=== PATIENT | female | born 1950 | race Caucasian/White ===

== ENCOUNTER 2019-08-24 11:17 | Day surgery (SDC) | payer MEDICARE ==
[~2019-08-24] VITALS: Ht 157.5 cm; Wt 118.2 kg
[2019-08-24 11:53] LABS: HEMATOCRIT 42.2 % (36.0-48.0); HEMOGLOBIN 14.2 g/dL (12-16); MCH 30.7 pg (26.0-34.0); MCHC 33.6 g/dL (31.0-37.0); MCV 91.1 fL (80.0-100.0); RBC 4.63 10x6/uL (4.00-5.40); RDW 13.4 % (11.5-14.5); WBC 8.9 10x3/uL (4.8-10.8)
[2019-08-24 12:01] LABS: CALC OSMOLALITY 278 mosm/kg (275-300); CALCIUM 9.3 mg/dL (8.5-10.1); CARBON DIOXIDE 27.7 mmol/L (21.0-32.0); CHLORIDE - SERUM 104 mmol/L (98-107); CREATININE - SERUM 0.8 mg/dL (0.6-1.3); GLUCOSE 120 mg/dL (74-106); POTASSIUM - SERUM 3.9 mmol/L (3.5-5.1); SODIUM 140 mmol/L (136-145); UREA NITROGEN 11 mg/dL (7-18); eGFR NON AFRICAN AMERICAN 75 mL/min (90-120)
[2019-08-24] MEDS ORDERED: BREO ELLIPTA 11 EACH INH (13:27)
[2019-08-24] MEDS ORDERED: METFORMIN HCL500 M1 PO (13:27)
[2019-08-24] MEDS ORDERED: LISINOPRIL20 MG PO (13:27)
[2019-08-24] MEDS ORDERED: PRAVASTATIN SOD10 MG PO (13:28)
[2019-08-24] MEDS ORDERED: WELLBUTRIN SR150 MG PO (13:28)
[2019-08-24] MEDS ORDERED: OXYBUTYNIN CHLOR5 MG PO (13:28)
[2019-08-24] MEDS ORDERED: ELOCON45 GM TOPICAL (13:29)
[2019-08-24] MEDS ORDERED: KENALOG 0.1 % 115 GM TOPICAL (13:29)
[2019-08-24 13:39] VITALS: BP 176/78; Ht 157.5 cm; Wt 118.2 kg
--- NOTE | 2019-08-24 15:40 | NUR ---
PT DC INSTRUCTIONS REVIEWED AT THIS TIME, PT VERBALIZES UNDERSTANDING. PT IV REMOVED AT THIS TIME, INTACT, NO REDNESS OR SWELLING NOTED AT SITE.
--- NOTE | 2019-08-24 15:52 | NUR ---
PT LEAVING OPS AT THIS TIME, VIA WC, NAD NOTED.
--- NOTE | 2019-08-25 07:49 | OP ---
PATIENT NAME: TRISTA NEAL MEDICAL RECORD: [id number] :48 LOCATION:[facility] ADMISSION DATE: SURGEON: SHELLIE KING DO DATE OF OPERATION: 08/24/2019 PROCEDURE: Colonoscopy with polypectomy and biopsies as well as partial snare polypectomy. INDICATIONS FOR PROCEDURE: Stool DNA based colorectal cancer screening positive with a family history positive for colon cancer in father as well as a brother and 2 sisters. SCOPE: Olympus video pediatric colonoscope. MEDICATIONS: Propofol 600 mg IV per anesthesia. ESTIMATED BLOOD LOSS: Minimal. COMPLICATIONS: None immediate. FINDINGS: Informed consent was given. The patient was made comfortable with the above medication. After reaching an adequate level of sedation by slow IV push, the patient was placed on her left side. A digital rectal examination was performed and was normal. The endoscope was advanced under direct visualization through the rectum to the cecum, confirmed by the presence of the appendiceal orifice and ileocecal valve. The endoscope was slowly withdrawn and mucosa was carefully examined. Prep quality was good. There were only 2 polyps visualized on today's examination. They were both located in the rectum. The first was a benign appearing polyp which was flat. It measured approximately 1 cm in size. It was removed using endoscopic mucosal resection technique with an injection of isotonic saline for a saline pillow. It was then removed using a snare successfully. A second polyp measured approximately 2 x 2.5 cm in size. It was a flat polyp with mixed features that had some depressed areas and some ulcerated areas which is somewhat concerning for possible malignancy. A lift was attempted on this polyp. Approximately half polyp did lift easily, but the ulcerative side with some depressed areas did not lift easily, which further raises some concern for possible malignancy. A snare polypectomy, biopsy was removed from the side that did lift easily and cold forceps biopsies were taken from the side that did not lift well for further information. We will need to determine if there are any areas of high-grade dysplasia in this polyp to determine further course of action, which could include surgery or further endoscopic removal. The only other finding in the entire colon was a large benign-appearing lipoma in the ascending colon, which was biopsied. The appendiceal orifice was visualized. The endoscope was slowly withdrawn with no other polyps visualized. There were also no diverticula. No obvious hemorrhoids were seen on today's examination either. IMPRESSIONS: Large, flat polyp with mixed features in the rectum, as described above. The polyp was biopsied with a snare and cold forceps. Another, smaller, flat polyp in the rectum that was removed with a snare. Benign lipoma in the ascending colon that was biopsied. PLAN: Await biopsy results to determine further intervention of rectal polyp, which may OPERATIVE REPORT [id number] TRISTA NEAL include surgical intervention or endoscopic removal with / without APC. Further recalls will be dependent on biopsy results and further interventions. TRANSINT:[id number] Voice Confirmation ID: [id number] DOCUMENT ID: [id number] SHELLIE KING DO at 0749 CC: [id number] DICTATION DATE: 08/24/19 1504 [facility] DIRECTOR: 08/24/19 1802 [facility] 08/24/19 [id number] [place] [address]
== END 2019-08-24 15:52 | disposition home or self-care (01) ==
LOC: D.OPS 11:17
PROVIDERS: Anesthesiology; ATTEND Internal Medicine Gastroenterology
DX: Z12.11 Encounter for screening for malignant neoplasm of colon (principal); Z80.0 Family history of malignant neoplasm of digestive organs

== ENCOUNTER 2020-02-16 06:40 | Day surgery (SDC) | payer MEDICARE ==
[~2020-02-16] VITALS: Ht 157.5 cm; Wt 119.5 kg
--- NOTE | ~2020-02-16 | OP ---
PATIENT NAME: TRISTA NEAL MEDICAL RECORD: [id number] :48 LOCATION:[facility] ADMISSION DATE: SURGEON: SHARON DOW MD DATE OF OPERATION: 02/16/2020 PREOPERATIVE DIAGNOSIS: History of rectal cancer. POSTOPERATIVE DIAGNOSES: 1. History of rectal cancer. 2. 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 SURGEON: Sharon Dow MD SHELL MAKER LOCKSTITCH: None. BLOOD LOSS: Minimal. ANESTHESIA: IV sedation. COMPLICATIONS: None. The risks, possible complications, and alternatives to the procedure were explained to the patient. She elects to proceed. The discussion specifically included, but was not limited to, bleeding requiring emergency reoperation, infection, and endoscopic perforation. OPERATIVE COURSE: The patient was conveyed to the GI lab electively on 02/16/2020, IV sedation was induced by the anesthesia staff. The patient was placed in the Nuñez position. A digital rectal examination was performed. A colonoscope was inserted through the anus. It was easily advanced to the cecum. The prep was adequate. I slowly withdrew the endoscope. A combination of normal imaging and narrow band imaging were utilized. The pullback was greater than 15-minute pullback. The malignancy was identified and was very close to the anus. A retroflexed view was obtained. I then thoroughly biopsied the ulcerated mass, which is unlikely some of the residual malignancy. I then utilized the argon plasma rn clinical review for hemostasis. I then un-retroflexed the scope and removed it under direct vision. I will see the patient in my office in 2 to 3 weeks. I think the patient is going to require proctectomy with an coloanal anastomosis and a diverting ileostomy. TRANSINT:[id number] Voice Confirmation ID: [id number] DOCUMENT ID: [id number] SHARON DOW MD CC: JO-ANN ALFARO MD, CHEPE FUENTES VOISE, NATHAN A DO [id number] ABIGAIL MITCHELL DICTATION DATE: 02/16/20 1053 PSYCHOLOGIST EDUCATIONAL: 02/16/202027 [facility] 02/16/20 [id number] [place] [address]
[~2020-02-16 06:40] MED LIST: BREO ELLIPTA 11 EACH INH; ELOCON45 GM TOPICAL; KENALOG 0.1 % 115 GM TOPICAL; LISINOPRIL20 MG PO; METFORMIN HCL500 M1 PO; OXYBUTYNIN CHLOR5 MG PO; PRAVASTATIN SOD10 MG PO; WELLBUTRIN SR150 MG PO
[2020-02-16 07:21] LABS: HEMATOCRIT 41.8 % (36.0-48.0); HEMOGLOBIN 13.6 g/dL (12-16); MCHC 32.5 g/dL (31.0-37.0); MCV 92.3 fL (80.0-100.0); MEAN PLATELET VOLUME 9.6 fL (7.4-10.4); RBC 4.53 10x6/uL (4.00-5.40); RDW 13.2 % (11.5-14.5); WBC 8.1 10x3/uL (4.8-10.8)
[2020-02-16 07:32] LABS: ANION GAP 11.3 mmol/L (8-16); CALCIUM 9.6 mg/dL (8.5-10.1); CARBON DIOXIDE 28.4 mmol/L (21.0-32.0); CREATININE - SERUM 0.9 mg/dL (0.6-1.3); POTASSIUM - SERUM 3.7 mmol/L (3.5-5.1)
[2020-02-16 07:45] VITALS: BP 136/101; Ht 157.5 cm; Wt 119.5 kg
--- NOTE | 2020-02-16 15:30 | NUR ---
[address] DOW. PROCEDURE FINDINGS DISCUSSED WITH PATIENT. PHOTOS REVIEWED. Luz BENÍTEZ R.N.
--- NOTE | 2020-02-16 15:33 | NUR ---
1145 IV DC'ED WITH CATH INTACT. PT DRESSING. Luz BENÍTEZ R.N. 1155 DRESSED AWAKE& ALERT. GIVEN DISCHARGE INFORMATION INCLUDING: MED REC, SHEET LISTING NSAIDS TO AVOID, RTC APPT., & [facility] POST ENDOSCOPIC D/C INSTRUCTIONS. PT VOICED UNDERSTANDING. TO PRIVATE CAR PER WHEELCHAIR BY STAFF. HOME WITH FAMILY. Luz BENÍTEZ R.N.
--- NOTE | 2020-02-16 18:31 | HP ---
PATIENT: TRISTA NEAL MEDICAL RECORD: [id number] ACCOUNT: [id number] LOCATION:[facility] : 48 ADMISSION DATE: 02/16/20 PCP: JO-ANN ALFARO HISTORY AND PHYSICAL EXAMINATION CHIEF COMPLAINT: Rectal cancer. HISTORY OF PRESENT ILLNESS: The patient was found to have a rectal cancer. She underwent chemotherapy. She did not undergo radiation therapy due to a history of uterine cancer in the past, which required radiation. She is here to determine if there is a persistent tumor requiring surgical resection. The risks, possible complications and alternatives to the procedure were explained to the patient. She elects to proceed. SOCIAL HISTORY: Nonsmoker. PAST MEDICAL AND SURGICAL HISTORY: Asthma, bronchitis, hypertension, non-insulin dependent diabetes, hypercholesterolemia, depression. REVIEW OF SYSTEMS: Negative for angina, myocardial infarction, CABG, or coronary stents. ALLERGIES: CODEINE AND PHENERGAN. HOME MEDICATIONS: Please see the nursing list. PHYSICAL EXAMINATION: GENERAL: The patient does not appear acutely ill. She does not appear chronically ill. VITAL SIGNS: Reviewed. EARS: External ears appear normal. EYES: Extraocular movements are intact. NECK: Trachea is midline. CHEST: No intercostal retractions. PULMONARY: Nonlabored. IMPRESSION: History of rectal cancer. PLAN: Colonoscopy. Biopsies. Probable tattooing. TRANSINT:[id number] Voice Confirmation ID: [id number] DOCUMENT ID: [id number] HISTORY AND PHYSICAL [id number] TRISTA NEAL SHARON DOW MD at 1831 CC: JO-ANN ALFARO MD, CHEPE FUENTES VOISE, NATHAN A [id number] ABIGAIL MITCHELL DICTATION DATE: 02/16/20 1005 W[facility] HELPER: 02/16/20 1016 [facility] 02/16/20 [id number] [place] [id number]
== END 2020-02-16 11:55 | disposition home or self-care (01) ==
LOC: D.OPS 06:40
PROVIDERS: Anesthesiology; ATTEND Surgery
DX: Z85.048 Personal history of other malignant neoplasm of rectum, rectosigmoid junction, and anus (principal)

== ENCOUNTER 2020-03-21 08:00 | Inpatient (IN) | payer MEDICARE ==
[~2020-03-21] VITALS: Ht 157.5 cm; Wt 150.7 kg
[~2020-03-21 08:00] MED LIST changes: +PRAVACHOL20 MG PO; -PRAVASTATIN SOD10 MG PO
[2020-03-28] MEDS ORDERED: NASACORT10.8 ML NASAL (13:55)
[2020-03-28] MEDS ORDERED: CLARITIN 10 MG10 MG PO (13:55)
[2020-03-30 09:01] LABS: BASOPHILS 0.6 % (0-2); HEMATOCRIT 41.2 % (36.0-48.0); HEMOGLOBIN 13.9 g/dL (12-16); IMMATURE GRANULOCYTES 0.3 % (0-5); LYMPHOCYTES 11.4 % (15-50); MCH 30.6 pg (26.0-34.0); MCHC 33.7 g/dL (31.0-37.0); MCV 90.7 fL (80.0-100.0); MEAN PLATELET VOLUME 9.8 fL (7.4-10.4); MONOCYTES 8.5 % (2-11); NEUTROPHILS 75.2 % (40-80); PLATELET COUNT 233 10x3/uL (130-400); RBC 4.54 10x6/uL (4.00-5.40); RDW 13.5 % (11.5-14.5)
[2020-03-30 09:13] LABS: ANION GAP 10.8 mmol/L (8-16); CALCIUM 9.6 mg/dL (8.5-10.1); CREATININE - SERUM 1.1 mg/dL (0.6-1.3); POTASSIUM - SERUM 3.8 mmol/L (3.5-5.1)
[2020-03-30 09:22] LABS: APTT 33.9 SECONDS (22.8-39.4); INR 1.08 (0.85-1.17); PROTIME 13.9 SECONDS (11.6-15.0)
[2020-03-30 10:15] VITALS: BP 148/79; BMI 48.9
--- NOTE | 2020-03-30 20:34 | NUR ---
1915 - PT STABLE AND MEETS PACU DISCHARGE CRITERIA, NO ICU BED AVAILABLE. SWITCHING TO PHASE II PROTOCOL.
[2020-03-30 22:25] VITALS: BP 106/69; BMI 51.3
[2020-03-30 23:00] VITALS: BP 102/58
[2020-03-31] VITALS (23 sets, daily range): BP systolic 84–120; BP diastolic 48–84; Ht 157.5 cm; Wt 150.7 kg
[2020-03-31 05:25] LABS: ANION GAP 14.3 mmol/L (8-16); CALCIUM 7.8 mg/dL (8.5-10.1); CARBON DIOXIDE 22.7 mmol/L (21.0-32.0); CREATININE - SERUM 0.9 mg/dL (0.6-1.3); MAGNESIUM - SERUM 1.5 mg/dL (1.8-2.4); PHOSPHOROUS 3.7 mg/dL (2.5-4.9)
[2020-03-31 05:28] LABS: HEMATOCRIT 33.6 % (36.0-48.0); MCH 30.1 pg (26.0-34.0); MCHC 32.7 g/dL (31.0-37.0); MCV 92.1 fL (80.0-100.0); PLATELET COUNT 218 10x3/uL (130-400); RBC 3.65 10x6/uL (4.00-5.40); RDW 13.7 % (11.5-14.5); WBC 22.3 10x3/uL (4.8-10.8)
[2020-03-31 07:53] LABS: LYMPHOCYTES 4 % (15-50); MONOCYTES 1 % (2-11); NEUTROPHILS 95 % (40-80); PLATELET ESTIMATE NORMAL
--- NOTE | 2020-03-31 09:54 | NUR ---
DR. DOW CALLED INSTRUCT BP 80S. WBC WENT FROM 9 TO 22. NEW ORDERS OBTAINED.
--- NOTE | 2020-03-31 09:55 | NUR ---
NS ONE LITER BOLUS INFUSING STARTED MERREM 2 GMS.
--- NOTE | 2020-03-31 10:00 | NUR ---
DAUGHTER UPDATED ON PT CONDITION.
--- NOTE | 2020-03-31 16:00 | NUR ---
TRY TO CALL SATISH TO UPDATE BUT HIS PHONE NOT EXCEPTING PHONE CALLS.
--- NOTE | 2020-03-31 18:16 | NUR ---
PT REFUSED BATH STATES I TOOK A HIBICLENS BATH YESTERDAY. WILL GET ONE TOMORROW.
[2020-04-01] VITALS (13 sets, daily range): BP systolic 99–142; BP diastolic 46–76
[2020-04-01 04:11] LABS: BASOPHILS 0.2 % (0-2); EOSINOPHILS 0.6 % (0-7); HEMATOCRIT 32.5 % (36.0-48.0); HEMOGLOBIN 10.2 g/dL (12-16); IMMATURE GRANULOCYTES 0.4 % (0-5); LYMPHOCYTES 6.8 % (15-50); MCH 30.3 pg (26.0-34.0); MCHC 31.4 g/dL (31.0-37.0); MEAN PLATELET VOLUME 10.1 fL (7.4-10.4); MONOCYTES 6.8 % (2-11); NEUTROPHILS 85.2 % (40-80); PLATELET COUNT 199 10x3/uL (130-400); RBC 3.37 10x6/uL (4.00-5.40); RDW 14.2 % (11.5-14.5)
[2020-04-01 04:16] LABS: MCV 96.4 fL (80.0-100.0); WBC 16.2 10x3/uL (4.8-10.8)
[2020-04-01 04:20] LABS: INR 1.27 (0.85-1.17); PROTIME 15.8 SECONDS (11.6-15.0)
[2020-04-01 04:26] LABS: ALBUMIN 2.3 g/dL (3.4-5.0); ALKALINE PHOSPHATASE 41 U/L (30-120); ALT (SGPT) 30 U/L (10-68); BILIRUBIN - TOTAL 0.77 mg/dL (0.2-1.3); CALC OSMOLALITY 288 mosm/kg (275-300); CARBON DIOXIDE 22.2 mmol/L (21.0-32.0); CHLORIDE - SERUM 113 mmol/L (98-107); CREATININE - SERUM 0.8 mg/dL (0.6-1.3); GLUCOSE 114 mg/dL (74-106); MAGNESIUM - SERUM 1.7 mg/dL (1.8-2.4); POTASSIUM - SERUM 4.1 mmol/L (3.5-5.1); PROTEIN - SERUM 5.3 g/dL (6.4-8.2); SODIUM 144 mmol/L (136-145); UREA NITROGEN 14 mg/dL (7-18); eGFR NON AFRICAN AMERICAN 75 mL/min (90-120)
--- NOTE | 2020-04-01 07:00 | NUR ---
BEDSIDE REPORT RECEIVED. SHIFT ASSESSMENT COMPLETE PER FLOWSHEET, SEE FLOWSHEET FOR INFORMATION. PT DEMANDDS ICE CHIPS. WHEN ASKED IF SHE IS IN PAIN SHE STATES "MY PAIN IS 20/10" EXPLAINED TO PT THE RULES AND REGULATIONS TO USING THE EPIDURAL. PT THEN STATED "I KNOW HOW TO USE IT." WILL CONT TO MONITOR.
--- NOTE | 2020-04-01 10:49 | NUR ---
REPORT CALLED TO [facility] SURG. WILL CONT TO MONITOR.
--- NOTE | 2020-04-01 11:30 | NUR ---
PATIENT RECEIVED TO ROOM 2227 WITH EPIDURAL INTACT WITH IVF AND EPIDURAL INFUSING AT PRESCRIBED RATE. COLOSTOMY INTACT TO LLQ ANTERIOR. O2 SAT 96% RA AT THIS TIME. ENCOURAGED TO USE CALL LIGHT FOR ASSIST
--- NOTE | 2020-04-01 21:23 | NUR ---
Kaci Pantoja CRNA notified of patients pain uncontrolled, increased to 6.5ml/hr, reattached tubing, will continue to monitor patient, family x1 at BS, call light within reach
--- NOTE | 2020-04-01 22:14 | NUR ---
Upon changing patients bed found active bleeding from rectum, Dr. Sawant notified, he stated that this would be normal for few months, applied ABD pad to rectum, colostomy intact with bright red dischaged, Dr. Sawant notified of the situation, will continue to monitor patient, patient rates pain 2 on pain scale 1/10, call light within reach, family x1 at BS
[2020-04-02 06:13] LABS: CALC OSMOLALITY 293 mosm/kg (275-300); CALCIUM 8.6 mg/dL (8.5-10.1); CARBON DIOXIDE 25.7 mmol/L (21.0-32.0); CHLORIDE - SERUM 112 mmol/L (98-107); CREATININE - SERUM 0.7 mg/dL (0.6-1.3); GLUCOSE 149 mg/dL (74-106); POTASSIUM - SERUM 4.2 mmol/L (3.5-5.1); SODIUM 145 mmol/L (136-145); UREA NITROGEN 17 mg/dL (7-18); eGFR NON AFRICAN AMERICAN 88 mL/min (90-120)
--- NOTE | 2020-04-02 09:22 | NUR ---
VERIFIED WITH SANDEEP FROM ANESTHESIA OK TO GIVE DILAUDID WITH EPIDURAL AT THIS TIME. STATED OK AND THAT SHE WOULD BE OVER TO REMOVED EPIDURAL WHEN FINISHED WITH THE CASE SHE IS IN.
[2020-04-02 10:10] VITALS: BP 167/70
[2020-04-02 13:25] VITALS: BP 161/76
[2020-04-02 16:43] LABS: HEMATOCRIT 31.9 % (36.0-48.0); HEMOGLOBIN 9.9 g/dL (12-16); MCH 30.3 pg (26.0-34.0); MCV 97.6 fL (80.0-100.0); MEAN PLATELET VOLUME 10.4 fL (7.4-10.4); PLATELET COUNT 241 10x3/uL (130-400); RBC 3.27 10x6/uL (4.00-5.40); RDW 13.9 % (11.5-14.5)
[2020-04-02 17:02] VITALS: BP 171/83
[2020-04-02 17:25] LABS: LYMPHOCYTES 7 % (15-50); MONOCYTES 3 % (2-11); NEUTROPHILS 89 % (40-80); PLATELET ESTIMATE NORMAL
[2020-04-02 21:00] VITALS: BP 190/77
--- NOTE | 2020-04-02 23:00 | NUR ---
INSTRUCTED PATIENT I HAD A ORDER TO PLACE NGT DUE TO VOMITING, PATIENT STATED HAS NOT HAD N/V SINCE SHIFT CHANGE, WOULD LIKE TO WAIT AND SEE IF N/W HAS SUBSIDED, WILL CONTINUE TO MONITOR PATIENT, FAMILY X1 AT BEDSIDE, CALL LIGHT WITHIN REACH, BARREL LATHE OPERATOR INSIDE INFUSING WITHOUT COMPLICATIONS
--- NOTE | 2020-04-03 04:25 | NUR ---
16 FR NGT INSERTED TO LEFT NARE BY ROB ABURTO. PATIENT TOLERAED WELL, CONNECTED TO LIWS, 750CC OUT, WILL CONTINUE TO MONITOR PATIENT, DILAUDID JOB SERVICE SPECIALIST IN USE, FAMILY X1 AT BS, CALL LIGHT WITHIN REACH
--- NOTE | 2020-04-03 07:00 | NUR ---
RECEIVED REPORT, ASSUMED CARE, CALL LIGHT IN REACH, AT BEDSIDE, BED LOWEST POSIIMARCO ANTONIO, NG TO Moi KELLER PATENT, IV TO RFA PATENT NS@100 DILAUDID ADVANCED MANUFACTURING ENGINEER, OSTOMY CDI, SCD'S ON, WILL CONTINUE POC
[2020-04-03 07:15] VITALS: BP 165/78
[2020-04-03 07:21] LABS: CALC OSMOLALITY 291 mosm/kg (275-300); CALCIUM 8.9 mg/dL (8.5-10.1); CARBON DIOXIDE 25.9 mmol/L (21.0-32.0); CHLORIDE - SERUM 111 mmol/L (98-107); CREATININE - SERUM 0.7 mg/dL (0.6-1.3); GLUCOSE 128 mg/dL (74-106); POTASSIUM - SERUM 4.1 mmol/L (3.5-5.1); SODIUM 144 mmol/L (136-145); eGFR NON AFRICAN AMERICAN 88 mL/min (90-120)
[2020-04-03 07:25] LABS: UREA NITROGEN 22 mg/dL (7-18)
[2020-04-03 08:03] LABS: BASOPHILS 0.2 % (0-2); EOSINOPHILS 4.7 % (0-7); HEMATOCRIT 31.6 % (36.0-48.0); HEMOGLOBIN 9.8 g/dL (12-16); LYMPHOCYTES 5.6 % (15-50); MCH 29.8 pg (26.0-34.0); MEAN PLATELET VOLUME 9.9 fL (7.4-10.4); MONOCYTES 6.9 % (2-11); NEUTROPHILS 81.6 % (40-80); PLATELET COUNT 298 10x3/uL (130-400); RBC 3.29 10x6/uL (4.00-5.40); RDW 13.9 % (11.5-14.5); WBC 18.9 10x3/uL (4.8-10.8)
[2020-04-03 12:04] VITALS: BP 175/78
--- NOTE | 2020-04-03 16:00 | NUR ---
PT WAS YELLING AND SCREAMING FOR US TO LEAVE HER ALONE AND REFUSED TO HAVE THE KUB, DR MCCOLLUM AWARE, PT GIVEN BOLUS DOSE OF DILAUDID 0.4MG TO HELP ALEVIATE HER PAIN, PT STILL REFUSED AND TOLD NURSE TO GET OUT OF HER ROOM AND LEAVE HER ALONE, NURSE INSTRUCTED PT TO USE PILLOW TO BRACE ABDOMEN WHEN MOVING OR COUGHING, ALSO NOTIFIED TO KEEP REMINDING HER TO BRACE ABDOMEN WITH PILLOW AKNOWLEDGED UNDERSTANDING. NURSE LEFT ROOM AND INSTRUCTED PT AND TO LET NURSE KNOW IF THEY NEED ANYTHING.
[2020-04-03 16:32] VITALS: BP 134/66
[2020-04-03 20:00] VITALS: BP 191/141
--- NOTE | 2020-04-03 20:00 | NUR ---
PATIENT RESTING QUIETLY, REPOSITIONED PATIENT WITH PATIENT HELP, PATIENT INSISTED DOIN IT BY HERSELF, PATIENT TOLERATED WELL, PATIENT LYING ON LEFT SIDE, COLOSTOMY INTACT, NGT TO LEFT NARE AT LIWS INTACT, GLOVER DRAINING VIA GRAVITY, SCD'S ON, FAMILY X1 AT BS, WILL CONTINUE TO MONITOR PATIENT, CALL LIGHT WITHIN REACH
[2020-04-04] VITALS: BP 151/76
[2020-04-04 04:00] VITALS: BP 167/74
[2020-04-04 06:24] LABS: BASOPHILS 0.3 % (0-2); EOSINOPHILS 3.5 % (0-7); HEMATOCRIT 31.4 % (36.0-48.0); HEMOGLOBIN 9.6 g/dL (12-16); IMMATURE GRANULOCYTES 1.2 % (0-5); LYMPHOCYTES 6.7 % (15-50); MCH 29.3 pg (26.0-34.0); MCHC 30.6 g/dL (31.0-37.0); MCV 95.7 fL (80.0-100.0); MEAN PLATELET VOLUME 9.7 fL (7.4-10.4); MONOCYTES 7.8 % (2-11); NEUTROPHILS 80.5 % (40-80); PLATELET COUNT 271 10x3/uL (130-400); RBC 3.28 10x6/uL (4.00-5.40); RDW 13.7 % (11.5-14.5)
[2020-04-04 06:28] LABS: WBC 13.6 10x3/uL (4.8-10.8)
[2020-04-04 06:46] LABS: CALCIUM 8.2 mg/dL (8.5-10.1); CHLORIDE - SERUM 112 mmol/L (98-107); GLUCOSE 116 mg/dL (74-106); MAGNESIUM - SERUM 1.6 mg/dL (1.8-2.4); POTASSIUM - SERUM 3.6 mmol/L (3.5-5.1); SODIUM 152 mmol/L (136-145)
[2020-04-04 06:50] LABS: CALC OSMOLALITY 303 mosm/kg (275-300); CARBON DIOXIDE 32.5 mmol/L (21.0-32.0); CREATININE - SERUM 0.5 mg/dL (0.6-1.3); UREA NITROGEN 14 mg/dL (7-18); eGFR NON AFRICAN AMERICAN > 90 mL/min (90-120)
[2020-04-04 08:37] VITALS: BP 167/72
[2020-04-04 12:00] VITALS: BP 196/91
--- NOTE | 2020-04-04 12:49 | NUR ---
DOOR OPEN. PATIENT WITHOUT SIGNS OF DISTRESS
--- NOTE | 2020-04-04 13:11 | NUR ---
PT RETURNEDF FROM MEDICAL IMAGING IN EXCRUCIATING PAIN AND NAUSEOUS, ADMINISTERED PRN NAUSEA MEDICATION WELL SUPERVISOR AREA BOLUS. DAUGHTER AT BEDSIDE, NGT IN PLACE TO LIS NO NEEDS VOICED ATTHIS TIME. COTNINUE WITH PLAN OF CARE
--- NOTE | 2020-04-04 13:13 | NUR ---
PER KUB NGT NEEDS TO BE ADVANCED BY AT LEAST 6CM. WILL ADVANCE ORDERD
--- NOTE | 2020-04-04 15:05 | MORECARE ---
CASE MANAGEMENT DISCHARGE SUMMARY PATIENT: TRISTA NEAL UNIT: [id number] ADM DATE: 03/30/20 AGE: 69 : 49 SEX: F ROOM/BED: D.2227 AUTHOR: EDILBERTO HDEZ PHYSICIAN: REFERRING PHYSICIAN: SHARON DOW MD DATE OF SERVICE: 04/04/20 Discharge Plan Patient Name: TRISTA NEAL Facility: [facility]:[place] : 1950 Planned Disposition: Home or Self Care Anticipated Discharge Date: Discharge Date: Expected LOS: Initial Reviewer: [email or web address] Initial Review Date: 04/04/2020 Generated: 04/04/20 4:04 pm Comments DCP- Discharge Planning Updated by [email or web address]: Tara Ruiz on 04/04/20 2:[address] Patient Name: TRISTA NEAL Admission Status: Elective Accout number: [id number] Admission Date: 03-30-2020 : 1950 Admission Diagnosis:MALIGNANT NEOPLASM OF RECTUM Attending: SHARON DOW Current LOS: 5 Anticipated DC Date: Planned Disposition: Home or Self Care Primary Insurance: MEDICARE A & B Discharge Planning Comments: CM met with patient AND DAUGHTER DONTE at bedside after explaining CM role and obtaining verbal consent. CM discussed availability / needs of home health, REHAB and medical equipment. PATIENT WITH NG TUBE AT THIS TIME. STATES PLAN TO DC TO HOME WHEN BETTER. REASSES FOR POSSIBLE NEED FOR HH OR REHAB. Bottom Brusher: Tara Ruiz DCPIA - Discharge Planning Initial Assessment Updated by [email or web address]: Tara Ruiz on 04/04/20 2:59 pm * Is the patient Alert and Oriented? Yes * PCP [facility] * [facility] * Preadmission Environment Home with Family * ADLs Independent * Other Equipment NEBULIZER * Can the patient safely return to the preadmission environment? Yes * Has this patient been hospitalized within the prior 30 days at any hospital? No Patient Name: TRISTA NEAL Page [phone] at 1505 All edits/amendments must be made on the electronic document DICTATION DATE: 04/04/20 1504 STATUE CARVER: JENIFFER 04/04/20 1504 RPT#: [id number] DC DATE: STATUS: ADM IN [facility] [address] [place] [address] END OF REPORT
[2020-04-04 16:00] VITALS: BP 182/76
--- NOTE | 2020-04-04 16:29 | NUR ---
PT MORE AWAKE THIS AFTERNOON AND STATES PAIN IS AT A 2. PT NGT HAS ABOUT 500 OUT PUT. DAUGHTER AT BEDSIDE NO NEEDS VOICED. CONTINUE WITH PLAN OF CARE
[2020-04-04 20:55] VITALS: BP 168/66
[2020-04-05] VITALS (7 sets, daily range): BP systolic 140–206; BP diastolic 68–107
[2020-04-05 05:11] LABS: CALC OSMOLALITY 291 mosm/kg (275-300); CALCIUM 8.7 mg/dL (8.5-10.1); CARBON DIOXIDE 31.3 mmol/L (21.0-32.0); CHLORIDE - SERUM 108 mmol/L (98-107); GLUCOSE 124 mg/dL (74-106); MAGNESIUM - SERUM 1.6 mg/dL (1.8-2.4); POTASSIUM - SERUM 3.4 mmol/L (3.5-5.1); SODIUM 146 mmol/L (136-145); UREA NITROGEN 13 mg/dL (7-18); eGFR NON AFRICAN AMERICAN 88 mL/min (90-120)
[2020-04-05 05:14] LABS: BASOPHILS 0.3 % (0-2); EOSINOPHILS 2.2 % (0-7); HEMATOCRIT 31.3 % (36.0-48.0); HEMOGLOBIN 9.9 g/dL (12-16); IMMATURE GRANULOCYTES 1.8 % (0-5); LYMPHOCYTES 6.4 % (15-50); MCH 30.2 pg (26.0-34.0); MCHC 31.6 g/dL (31.0-37.0); MCV 95.4 fL (80.0-100.0); MEAN PLATELET VOLUME 9.5 fL (7.4-10.4); MONOCYTES 7.5 % (2-11); NEUTROPHILS 81.8 % (40-80); PLATELET COUNT 275 10x3/uL (130-400); RBC 3.28 10x6/uL (4.00-5.40); RDW 13.8 % (11.5-14.5); WBC 15.7 10x3/uL (4.8-10.8)
[2020-04-05 05:26] LABS: CREATININE - SERUM 0.7 mg/dL (0.6-1.3)
--- NOTE | 2020-04-05 11:46 | NUR ---
CASPER CHECKING NGT. PATIENT IS WITHOUT DISTRESS.CALL LIGHT IN REACH
--- NOTE | 2020-04-05 14:27 | NUR ---
Nutrition follow-up: Pt POD 5; now with ileus vs SBO Continues NPO Labs reviewed Wt: 290# Recommend starting ProcalAmine PPN @ 125 ml/hr due to NPO for 5 days RDN following.
--- NOTE | 2020-04-05 18:16 | NUR ---
PT TEMP IS 102.6, PT HAS BLOOD CULTURES X2 ORDERED WELL ASABX. NOTIFIED SURGEON. CONTINUE WITH PLAN OF CARE
--- NOTE | 2020-04-05 21:29 | NUR ---
2100 PT TRANSFERED TO ICU, PT. HAS A TEMP OF 102.3. CALLED DR. DOW AND NEW ORDERS PLACED FOR TYLENOL IV EVERY 6 HRS. CONSULT ALSO PLACED FOR DR DOWNEY, RELATED TO PT. BEING CRITICAL AND POSSIBLE SEPSIS.
--- NOTE | 2020-04-05 23:02 | NUR ---
2229 REASSES PT. TEMP IS STILL ELEVATED. 102.7. PLACED ICE PACKS IN AN ATTEMPT TO COOL PT. DOWN. PT. NOT ABLE TO ANSWER QUESTIONS AT THIS TIME. GENERALIZED EDEMA. REDNESS NOTED ON BUE. GLOVER IN PLACE FOR ACCURATE I&Os. WILL CONTINUE TO MONITOR
[2020-04-06] VITALS (20 sets, daily range): BP systolic 77–183; BP diastolic 58–104
--- NOTE | 2020-04-06 02:47 | NUR ---
2300 PT. TEMP IS DECREASING. TEMP NOW 101.4. PT. RESTING IN THE BED WITH EYES CLOSED. WILL CONTINUE TO MONITOR
--- NOTE | 2020-04-06 02:48 | NUR ---
0100 PT STILL RESTING WITH EYES CLOSED. NO CHANGES AT THIS TIME
--- NOTE | 2020-04-06 03:49 | NUR ---
0300 resting with eyes closed no signs of discomfort at this time. temp. is 98.5. will cont. to monitor
[2020-04-06 05:05] LABS: BASOPHILS 0.2 % (0-2); EOSINOPHILS 0.2 % (0-7); HEMATOCRIT 30.1 % (36.0-48.0); HEMOGLOBIN 9.6 g/dL (12-16); IMMATURE GRANULOCYTES 3.2 % (0-5); LYMPHOCYTES 2.3 % (15-50); MCH 29.9 pg (26.0-34.0); MCHC 31.9 g/dL (31.0-37.0); MCV 93.8 fL (80.0-100.0); MEAN PLATELET VOLUME 9.7 fL (7.4-10.4); NEUTROPHILS 91.1 % (40-80); PLATELET COUNT 269 10x3/uL (130-400); RBC 3.21 10x6/uL (4.00-5.40); RDW 13.7 % (11.5-14.5); WBC 12.8 10x3/uL (4.8-10.8)
[2020-04-06 05:07] LABS: CALC OSMOLALITY 279 mosm/kg (275-300); CALCIUM 7.6 mg/dL (8.5-10.1); CARBON DIOXIDE 29.6 mmol/L (21.0-32.0); CHLORIDE - SERUM 102 mmol/L (98-107); CREATININE - SERUM 0.7 mg/dL (0.6-1.3); GLUCOSE 150 mg/dL (74-106); MAGNESIUM - SERUM 1.6 mg/dL (1.8-2.4); PHOSPHOROUS 1.7 mg/dL (2.5-4.9); POTASSIUM - SERUM 3.1 mmol/L (3.5-5.1); SODIUM 139 mmol/L (136-145); UREA NITROGEN 11 mg/dL (7-18); eGFR NON AFRICAN AMERICAN 88 mL/min (90-120)
--- NOTE | 2020-04-06 05:11 | NUR ---
0500 NO CHANGES AT THIS TIME
--- NOTE | 2020-04-06 07:10 | NUR ---
REPORT RECEIVED FROM SCHOOL PHOTOGRAPHS DETAILER PATIENT CARE ASSUMED. PATIENT LAYING IN BED ON BACK WITH HOB ELEVATED [address] DEGREES. NG TUBE IN PLACE TO SUCTION WITH DARK BLOODY SECRETIONS. GLOVER DRAING CLEAR GOLD URINE. 02@2L PER NCC. IV TO MONTSERRAT AND LT CHEST WITH PROCAL, NS KT AND DILAUDED MILITARY PAY TECHNICIAN IN PLACE. BP 163/74 HR 110 02SAT 95 AND R 24. T 100.7. WILL CONTINUE TO MONITOR. SR UPX 2 BED IN LOW POSITION AND CALL LIGHT IN REACH.
--- NOTE | 2020-04-06 08:56 | NUR ---
DR DOW CALLED. UPDATE GIVEN. NEW ORDER RECEIVED FOR STEW.
--- NOTE | 2020-04-06 09:38 | NUR ---
PATIENT TEMP 102.6. STARTED TYLENOL IV DRIP. PLACED ICE BAGS AXILLARY.
--- NOTE | 2020-04-06 09:44 | NUR ---
UPDATED PATIENT DTR GAYLA MARINELLI
--- NOTE | 2020-04-06 10:45 | NUR ---
TEMP 102.8. ICE BAG BRIDGET AXILLA AND BRIDGET GROIN. NOTIFIED DR DOW OF DARK RED BLEEDING FROM STOMA AND CONT FROM NG TUBE. NEW ORDER FOR STAT CXR.
--- NOTE | 2020-04-06 11:49 | NUR ---
CALLED PATIENTS SATISH AND DTR GAYLA. SPENT SEVERAL MINUTES UPDATING REGARDING PATIENT CONDITION AND WHAT SURGERY DR DOW WANTS TO PERFORM.FAMILY CONSENTED TO SURGERY, ANESTHESIA AND BLOOD CONSENT.COLIN HAWLEY RN SPOKE AND HEARD VERBAL CONSENT WELL. ALSO INFORMED AND DTRTAHT PATIENTWILL BE ON VENTILATOR POST OP.THEY AGREED TO VENT PLACEMENT WELL. WILL CONTINUE TO MONITOR.SR UP X 2 BED IN LOW POSITION AND CALL LIGHT IN REACH.
--- NOTE | 2020-04-06 13:15 | NUR ---
Nutrition follow-up: Pt now in ICU for possible sepsis NPO with NGT->LIWS with bloody drainage Pt to surgery today ProcalAmine PPN @ 75 ml/hr Wt: 290# Labs reviewed RDN following.
--- NOTE | 2020-04-06 13:40 | NUR ---
PATIENT TO SURGERY VIA HOSPITAL BED ACCOMPANIED BY HOSPITAL STAFF. CALLED PATIENT FAMILY AND INFORMED PATIENT TO SURGERY.
[2020-04-06 20:59] LABS: BASOPHILS 0.3 % (0-2); EOSINOPHILS 0 % (0-7); HEMATOCRIT 33.5 % (36.0-48.0); HEMOGLOBIN 10.5 g/dL (12-16); IMMATURE GRANULOCYTES 3.7 % (0-5); LYMPHOCYTES 3.4 % (15-50); MCH 29.2 pg (26.0-34.0); MCHC 31.3 g/dL (31.0-37.0); MCV 93.1 fL (80.0-100.0); MEAN PLATELET VOLUME 9.5 fL (7.4-10.4); NEUTROPHILS 87.6 % (40-80); RDW 13.8 % (11.5-14.5)
[2020-04-06 21:03] LABS: PLATELET COUNT 366 10x3/uL (130-400); WBC 19.6 10x3/uL (4.8-10.8)
--- NOTE | 2020-04-06 23:54 | NUR ---
1900 BEDSIDE REPORT WAS RECEIVED. STARTED FENT. PER ORDERS. WILL CONT. TO MONITOR
--- NOTE | 2020-04-06 23:55 | NUR ---
2100 DIPROVAN DECREASED. NO OTHER CHANGES AT THIS TIME.
--- NOTE | 2020-04-06 23:56 | NUR ---
2300 DIPROVAN TURNED OFF AND FENT. TURNED UP TO 200MCG. RESTING QUIETLY, EYES CLOSED. NO SIGNS OF DISCOMFORT OR DISTRESS. WILL CONTINUE TO MONITOR
[2020-04-07] VITALS (31 sets, daily range): BP systolic 84–137; BP diastolic 23–62
--- NOTE | 2020-04-07 01:06 | NUR ---
SPOKE WITH DR. JUAREZ BP RUNNING 86/55 HEART RATE 130, URINE OUTPUT 50ML FOR THE LAST FEW HOURS. NEW ORDERS GIVEN AND PLACED
--- NOTE | 2020-04-07 04:00 | NUR ---
0300 PLASMA ADMINISTERED WITH NO SIGNS OF COMPLICATIONS. WILL CONT. TO MONITOR
--- NOTE | 2020-04-07 07:00 | NUR ---
HEAD TO TOE ASSESSMENT COMPLETED. UNABLE TO AUSCULTATE NG TUBE. REMOVED AND REINSERTED. AUSCULTATED BOWEL SOUNDS, AND DARK GREEN BILE NOTED. PT WAKES WITH MINIMAL MOVEMENT. APPPLIED RESTRAINTS FOR SAFETY. 0900- REPOSITIONED. DR DOWNEY AT BEDSIDE. STATES PREPARE FOR BRONCH. CALLED PT FOR CONSENT. VERIFIED WITH TAMIE RIVAS. 1100 REASSESSMENT COMPLETED NO CHANGES NOTED REPOSITIONED AND PROVIDED ORAL CARE
[2020-04-07 08:25] LABS: HEMOGLOBIN 8.9 g/dL (12-16); MCH 29.3 pg (26.0-34.0); MCHC 31.8 g/dL (31.0-37.0); MCV 92.1 fL (80.0-100.0); MEAN PLATELET VOLUME 9.3 fL (7.4-10.4); RBC 3.04 10x6/uL (4.00-5.40); RDW 14.3 % (11.5-14.5)
[2020-04-07 08:31] LABS: PLATELET COUNT 224 10x3/uL (130-400); WBC 11.2 10x3/uL (4.8-10.8)
[2020-04-07 10:04] LABS: ALBUMIN 2.2 g/dL (3.4-5.0); ANION GAP 7.3 mmol/L (8-16); BILIRUBIN - TOTAL 1.32 mg/dL (0.2-1.3); CALCIUM 7.3 mg/dL (8.5-10.1); CARBON DIOXIDE 31.3 mmol/L (21.0-32.0); MAGNESIUM - SERUM 1.7 mg/dL (1.8-2.4); PROTEIN - SERUM 4.9 g/dL (6.4-8.2)
[2020-04-07 10:06] LABS: CREATININE - SERUM 1.3 mg/dL (0.6-1.3); PHOSPHOROUS 3.1 mg/dL (2.5-4.9); POTASSIUM - SERUM 3.6 mmol/L (3.5-5.1)
--- NOTE | 2020-04-07 12:00 | NUR ---
DR DOWNEY AND RT AT BEDSIDE FOR BRONCH. PT TOLERATED PROCEDURE WELL.
[2020-04-07 13:20] LABS: ANISOCYTOSIS OCC; LYMPHOCYTES 14 % (15-50); MONOCYTES 11 % (2-11); NEUTROPHILS 67 % (40-80); PLATELET ESTIMATE NORMAL
--- NOTE | 2020-04-07 15:26 | NUR ---
REASSESSMENT COMPLETED. ELEVATED TEMP NOTED. ADMINISERED IV TYLENOL PER ORDER. REPOSITIONED, AND PROVIDED ORAL CARE.
--- NOTE | 2020-04-07 17:00 | NUR ---
REPOSIIONED ONTO BACK. PT SHOWS NO S/S OF DISTRESS.
--- NOTE | 2020-04-07 23:17 | NUR ---
1900 BEDSIDE SHIFT REPORT RECEIVED. SEDATED AND ON THE VENT. NO SIGNS AND SYMPTOMS OF DISTRESS OR DISCOMFORT. WILL CONTINUE TO MONITOR
--- NOTE | 2020-04-07 23:20 | NUR ---
2100 NO CHANGES AT THIS TIME
--- NOTE | 2020-04-07 23:21 | NUR ---
2300 2300 PT NOED O HAVE A SLIGHT TEMP.USED COLD COMPRESS. ATTEMPTED TO REPOSITION PT., WHEN ROLLED PT OVER SHE WAS BLEEDING FROM HER RECTUM. CALLED M.D. AND WAS TOLD THIS WAS NORM. AFTER HER SURGERY. NO NEW ORDERS WERE OBTAINED. POSTIONED PT. ONTO HER BACK TO HELP SLOW THE BLEEDING. WILL CONTINUE TO MONITOR
[2020-04-08] VITALS (24 sets, daily range): BP systolic 89–119; BP diastolic 42–61
--- NOTE | 2020-04-08 01:11 | NUR ---
0100 RESTING COMFORTABLY, EYE CLOSED. TEMP. HAS DECREASED TO 99.0 WILL CONTINUE TO MONITOR
[2020-04-08 04:26] LABS: ANION GAP 6.3 mmol/L (8-16); CALCIUM 7.8 mg/dL (8.5-10.1); CARBON DIOXIDE 31.3 mmol/L (21.0-32.0); CREATININE - SERUM 1.1 mg/dL (0.6-1.3); MAGNESIUM - SERUM 1.9 mg/dL (1.8-2.4); POTASSIUM - SERUM 3.6 mmol/L (3.5-5.1)
[2020-04-08 04:28] LABS: BASOPHILS 0.2 % (0-2); EOSINOPHILS 3.1 % (0-7); HEMATOCRIT 28.8 % (36.0-48.0); HEMOGLOBIN 9.1 g/dL (12-16); IMMATURE GRANULOCYTES 0.9 % (0-5); LYMPHOCYTES 7.7 % (15-50); MCH 29.2 pg (26.0-34.0); MCHC 31.6 g/dL (31.0-37.0); MCV 92.3 fL (80.0-100.0); MEAN PLATELET VOLUME 9.9 fL (7.4-10.4); MONOCYTES 7.1 % (2-11); PLATELET COUNT 236 10x3/uL (130-400); RBC 3.12 10x6/uL (4.00-5.40); RDW 14.7 % (11.5-14.5)
[2020-04-08 04:38] LABS: WBC 14.7 10x3/uL (4.8-10.8)
--- NOTE | 2020-04-08 05:17 | NUR ---
0300 NO CHANGES AT THIS TIME
--- NOTE | 2020-04-08 05:18 | NUR ---
0500 OPENS EYES WHEN SPOKEN TO BUT DOES NOT FOLLOW COMMANDS. CHANGED CENTRAL LINE DRESSING NO SIGNS OF DISCOMFORT OR DISTRESS AT THIS TIME. WILL CONT. TO MONITOR
--- NOTE | 2020-04-08 07:00 | NUR ---
PT REPORT RECEIVED FROM PAPERBOARD BOXES ESTIMATOR NURSE. NO ACUTE SIGNS OF DISTRESS NOTED. PT SEDATED ON VENT. SHIFT ASSESSMENT COMPLETED. WILL CONTINUE TO MONITOR
--- NOTE | 2020-04-08 09:15 | NUR ---
RT IN ROOM. NO SIGNS OF DISTRESS NOTED. PT RESTING IN BED. WILL CONTINUE TO MONITOR
--- NOTE | 2020-04-08 10:10 | NUR ---
Nutrition follow-up: Intubated, sedated OGT->LIWS ProcalAmine PPN @ 75 ml/hr Wt: 297# RND following.
--- NOTE | 2020-04-08 13:03 | NUR ---
SPOKE WITH FAMILY. UPDATE GIVEN. ANSWERED QUESTIONS. WILL CONTINUE TO MONITOR
--- NOTE | 2020-04-08 19:42 | NUR ---
TRACY CALLED FOR UPDATE. PASSCODE GIVEN. UPDATE GIVEN
[2020-04-09] VITALS (24 sets, daily range): BP systolic 90–141; BP diastolic 43–61
--- NOTE | 2020-04-09 05:00 | NUR ---
CHG BATH WITH COMPLETE LINEN CHANGE
[2020-04-09 05:55] LABS: BASOPHILS 0.4 % (0-2); EOSINOPHILS 4.8 % (0-7); HEMATOCRIT 26.9 % (36.0-48.0); HEMOGLOBIN 8.4 g/dL (12-16); IMMATURE GRANULOCYTES 2.5 % (0-5); LYMPHOCYTES 9.2 % (15-50); MCH 29.2 pg (26.0-34.0); MCHC 31.2 g/dL (31.0-37.0); MCV 93.4 fL (80.0-100.0); MEAN PLATELET VOLUME 10.4 fL (7.4-10.4); MONOCYTES 9.6 % (2-11); NEUTROPHILS 73.5 % (40-80); RBC 2.88 10x6/uL (4.00-5.40); RDW 14.7 % (11.5-14.5); WBC 13.8 10x3/uL (4.8-10.8)
[2020-04-09 06:13] LABS: ALKALINE PHOSPHATASE 67 U/L (30-120); ALT (SGPT) 275 U/L (10-68); BILIRUBIN - TOTAL 0.42 mg/dL (0.2-1.3); CALC OSMOLALITY 278 mosm/kg (275-300); CALCIUM 7.7 mg/dL (8.5-10.1); CARBON DIOXIDE 31.1 mmol/L (21.0-32.0); CHLORIDE - SERUM 103 mmol/L (98-107); GLUCOSE 154 mg/dL (74-106); PHOSPHOROUS 2.4 mg/dL (2.5-4.9); POTASSIUM - SERUM 3.7 mmol/L (3.5-5.1); PROTEIN - SERUM 4.6 g/dL (6.4-8.2); SODIUM 136 mmol/L (136-145); UREA NITROGEN 23 mg/dL (7-18)
[2020-04-09 06:15] LABS: ALBUMIN 1.5 g/dL (3.4-5.0); CREATININE - SERUM 0.8 mg/dL (0.6-1.3); eGFR NON AFRICAN AMERICAN 75 mL/min (90-120)
--- NOTE | 2020-04-09 07:08 | NUR ---
LEFT AC RED, SWOLLEN, WARM TO TOUCH. CALLED PARTY PLAN SALES AGENT FOR SURGERY AT THIS TIME. WAITING RETURN CALL.
--- NOTE | 2020-04-09 07:11 | NUR ---
CALLED PHARMACY FOR IV PHOSPHORUS.
[2020-04-09 07:15] LABS: PLATELET COUNT 150 10x3/uL (130-400)
--- NOTE | 2020-04-09 09:08 | NUR ---
Nutrition follow-up: Received order from Dr. Sawant to start TPN Chart reviewed Labs reviewed TPN order @ 60 ml/hr Pt receiving propofol; no lipids at this time Will order labs RDN following.
--- NOTE | 2020-04-09 20:45 | NUR ---
MAGGY, DAUGHTER, CALLED FOR UPDATE. PASSCODE GIVEN. UPDATE GIVEN TO MAGGY
--- NOTE | 2020-04-09 21:45 | NUR ---
DR. DOW AT BEDSIDE. UPDATE
[2020-04-10] VITALS (24 sets, daily range): BP systolic 95–160; BP diastolic 41–74
[2020-04-10 04:15] LABS: HEMATOCRIT 25.4 % (36.0-48.0); MCH 29.3 pg (26.0-34.0); MCHC 31.5 g/dL (31.0-37.0); MEAN PLATELET VOLUME 9.7 fL (7.4-10.4); RBC 2.73 10x6/uL (4.00-5.40); RDW 14.5 % (11.5-14.5); WBC 16.2 10x3/uL (4.8-10.8)
[2020-04-10 04:17] LABS: PLATELET COUNT 251 10x3/uL (130-400)
[2020-04-10 04:32] LABS: ALKALINE PHOSPHATASE 70 U/L (30-120); BASOPHILS 1 % (0-2); BILIRUBIN - TOTAL 0.54 mg/dL (0.2-1.3); CALCIUM 8.3 mg/dL (8.5-10.1); CARBON DIOXIDE 32.3 mmol/L (21.0-32.0); CHLORIDE - SERUM 102 mmol/L (98-107); CREATININE - SERUM 0.8 mg/dL (0.6-1.3); EOSINOPHILS 8 % (0-7); LYMPHOCYTES 9 % (15-50); MAGNESIUM - SERUM 2.2 mg/dL (1.8-2.4); NEUTROPHILS 82 % (40-80); PLATELET ESTIMATE NORMAL; POTASSIUM - SERUM 3.7 mmol/L (3.5-5.1); PROTEIN - SERUM 5.1 g/dL (6.4-8.2); SODIUM 136 mmol/L (136-145); UREA NITROGEN 25 mg/dL (7-18); eGFR NON AFRICAN AMERICAN 75 mL/min (90-120)
[2020-04-10 04:33] LABS: ANISOCYTOSIS OCC; TARGET CELLS 1+
[2020-04-10 04:37] LABS: ALBUMIN 1.9 g/dL (3.4-5.0); ALT (SGPT) 193 U/L (10-68); CALC OSMOLALITY 282 mosm/kg (275-300); GLUCOSE 220 mg/dL (74-106); PHOSPHOROUS 3.2 mg/dL (2.5-4.9)
--- NOTE | 2020-04-10 07:56 | NUR ---
Nutrition follow-up: Chart reviewed TPN @ 40 ml/hr Labs reviewed Will continue current TPN formula RDN following.
[2020-04-10 15:08] LABS: ACID FAST SMEAR Negative (()); AFB SPECIMEN PROCESSING Concentration (())
[2020-04-11] VITALS (23 sets, daily range): BP systolic 92–117; BP diastolic 46–556
[2020-04-11 06:06] LABS: BASOPHILS 0.5 % (0-2); EOSINOPHILS 2.4 % (0-7); HEMATOCRIT 21.1 % (36.0-48.0); IMMATURE GRANULOCYTES 3.8 % (0-5); LYMPHOCYTES 7.5 % (15-50); MCH 29.3 pg (26.0-34.0); MCHC 30.8 g/dL (31.0-37.0); MEAN PLATELET VOLUME 10.1 fL (7.4-10.4); MONOCYTES 9.6 % (2-11); NEUTROPHILS 76.2 % (40-80); PLATELET COUNT 279 10x3/uL (130-400); RBC 2.22 10x6/uL (4.00-5.40); RDW 14.7 % (11.5-14.5); WBC 15.6 10x3/uL (4.8-10.8)
[2020-04-11 06:18] LABS: ALBUMIN 2.1 g/dL (3.4-5.0); ALKALINE PHOSPHATASE 64 U/L (30-120); ALT (SGPT) 101 U/L (10-68); BILIRUBIN - TOTAL 0.45 mg/dL (0.2-1.3); CALC OSMOLALITY 282 mosm/kg (275-300); CALCIUM 7.8 mg/dL (8.5-10.1); CARBON DIOXIDE 31.4 mmol/L (21.0-32.0); CHLORIDE - SERUM 103 mmol/L (98-107); CREATININE - SERUM 0.8 mg/dL (0.6-1.3); GLUCOSE 194 mg/dL (74-106); MAGNESIUM - SERUM 2.3 mg/dL (1.8-2.4); POTASSIUM - SERUM 3.9 mmol/L (3.5-5.1); SODIUM 137 mmol/L (136-145); UREA NITROGEN 23 mg/dL (7-18); eGFR NON AFRICAN AMERICAN 75 mL/min (90-120)
[2020-04-11 06:38] LABS: HEMOGLOBIN 6.5 g/dL (12-16)
--- NOTE | 2020-04-11 08:04 | NUR ---
Nutrition follow-up: Pt remains intubated, sedated Chart reviewed Labs reviewed Will continue current TPN formula @ 60 ml/hr RDN following.
--- NOTE | 2020-04-11 09:30 | NUR ---
[address] LOERA NEW ORDERS NOTED FOR 2 UNITS PRBC ORDERED
[2020-04-11 14:09] LABS: FUNGUS STAIN Final report (())
[2020-04-11 22:45] LABS: HEMATOCRIT 25.5 % (36.0-48.0); HEMOGLOBIN 7.9 g/dL (12-16)
[2020-04-12] VITALS (24 sets, daily range): BP systolic 96–154; BP diastolic 44–86
[2020-04-12 05:48] LABS: HEMATOCRIT 23.6 % (36.0-48.0); MCH 29.6 pg (26.0-34.0); MCHC 30.9 g/dL (31.0-37.0); MCV 95.5 fL (80.0-100.0); PLATELET COUNT 329 10x3/uL (130-400); RBC 2.47 10x6/uL (4.00-5.40); RDW 15.1 % (11.5-14.5); WBC 13.1 10x3/uL (4.8-10.8)
[2020-04-12 06:09] LABS: CALC OSMOLALITY 280 mosm/kg (275-300); CALCIUM 7.7 mg/dL (8.5-10.1); CARBON DIOXIDE 26.4 mmol/L (21.0-32.0); CHLORIDE - SERUM 105 mmol/L (98-107); CREATININE - SERUM 0.8 mg/dL (0.6-1.3); GLUCOSE 228 mg/dL (74-106); POTASSIUM - SERUM 3.9 mmol/L (3.5-5.1); SODIUM 135 mmol/L (136-145); UREA NITROGEN 25 mg/dL (7-18); eGFR NON AFRICAN AMERICAN 75 mL/min (90-120)
[2020-04-12 06:16] LABS: ALBUMIN 2.2 g/dL (3.4-5.0); ALKALINE PHOSPHATASE 60 U/L (30-120); BILIRUBIN - TOTAL 0.81 mg/dL (0.2-1.3); PROTEIN - SERUM 5.2 g/dL (6.4-8.2)
[2020-04-12 06:23] LABS: ALT (SGPT) 62 U/L (10-68); HEMOGLOBIN 7.3 g/dL (12-16)
--- NOTE | 2020-04-12 07:00 | NUR ---
AWAKES TO VERBAL STIMULI. MOVES ALL EXTREMITIES ON REQUEST. OPENS EYES TO VOICE. GRIMACES WHEN REPOSITIONED. MID ABD WOUND VAC INTACT COMPRESSED. MINIMAL DRAINAGE NOTED. LOWER ABD A COLOSTOMY NO STOMA NOTED TO OPEN DRAINAGE BAG WITH DARK RED DRAINAGE NOTED. GLOVER CATH PATENT. SCD ON LOWER LEGS. JO RIGHT RADIAL GOOD WAVE FORM FAIRLY ACCURATE TO CUFF PRESSURE. RIJ TRIPLE LUMEN CENTRAL LINE INFUSING WITH TPN AT 60 ML HOUR, AND 1/2NS AT 75 ML HOUR. HEAD OF BED ELEVATED. BILATERAL LUNG SOUNDS EQUAL. ETT SECURE TO VENT. RESTING COMFORTABLY WHEN NOT RECEIVING TREATMENT.
[2020-04-12 09:10] LABS: MAGNESIUM - SERUM 2.3 mg/dL (1.8-2.4); PHOSPHOROUS 2.8 mg/dL (2.5-4.9)
--- NOTE | 2020-04-12 09:45 | NUR ---
Nutrition follow-up: Chart reviewed Labs reviewed Pt remains intubated TPN @ 60 ml/hr Will continue current TPN formula RDN following.
--- NOTE | 2020-04-12 11:21 | NUR ---
NOTIFIED OF TEMP 102.0 ORDERS RECEIVED FOR BLOOD CULTURES
[2020-04-12 11:38] LABS: EOSINOPHILS 4 % (0-7); LYMPHOCYTES 13 % (15-50); MONOCYTES 12 % (2-11); NEUTROPHILS 70 % (40-80); PLATELET ESTIMATE NORMAL; ROULEAUX OCC
--- NOTE | 2020-04-12 18:00 | NUR ---
2 UNITS OF BLOOD INFUSED TODAY. COMPLETE HIBCLENS BATH GIVEN. RECTAL DRESSING DRY AND INTACT. OPENS EYES TO VERBAL STIMULI. DR. DWO HERE NO NOEW ORDERS. ARMS WEEPING CLEAR YELLOW FLUID.
[2020-04-13] VITALS (25 sets, daily range): BP systolic 99–196; BP diastolic 46–98
[2020-04-13 03:25] LABS: BASOPHILS 0.2 % (0-2); EOSINOPHILS 1.7 % (0-7); IMMATURE GRANULOCYTES 2.6 % (0-5); LYMPHOCYTES 11.8 % (15-50); MCH 29.6 pg (26.0-34.0); MCHC 31.3 g/dL (31.0-37.0); MCV 94.7 fL (80.0-100.0); MEAN PLATELET VOLUME 10.2 fL (7.4-10.4); MONOCYTES 8.4 % (2-11); NEUTROPHILS 75.3 % (40-80); RDW 14.9 % (11.5-14.5)
[2020-04-13 03:28] LABS: HEMATOCRIT 32.3 % (36.0-48.0); HEMOGLOBIN 10.1 g/dL (12-16); PLATELET COUNT 459 10x3/uL (130-400); RBC 3.41 10x6/uL (4.00-5.40); WBC 17.9 10x3/uL (4.8-10.8)
[2020-04-13 03:37] LABS: ALBUMIN 2.7 g/dL (3.4-5.0); ANION GAP 8.2 mmol/L (8-16); BILIRUBIN - TOTAL 1.95 mg/dL (0.2-1.3); CALCIUM 8.5 mg/dL (8.5-10.1); CARBON DIOXIDE 28.5 mmol/L (21.0-32.0); CREATININE - SERUM 0.9 mg/dL (0.6-1.3); MAGNESIUM - SERUM 2.3 mg/dL (1.8-2.4); PHOSPHOROUS 2.8 mg/dL (2.5-4.9); PROTEIN - SERUM 6.1 g/dL (6.4-8.2)
[2020-04-13 03:49] LABS: POTASSIUM - SERUM 4.7 mmol/L (3.5-5.1)
--- NOTE | 2020-04-13 07:44 | NUR ---
Nutrition follow-up: chart reviewed TPN infusing @ 60 ml/hr; 1/2 NS @ 75 ml/hr Labs reviewed; Na 134 and continues to trend down Will continue current TPN formula Recommend decreasing IVF to 25 ml/hr RDN following.
--- NOTE | 2020-04-13 07:45 | NUR ---
ASSUMED PLAN OF CARE FOR THIS PT. PT IS AWAKE WITH EYES OPEN ON VENT. VSS AND BEING MONITERED CLOSELY. INTRODUCED MYSELF TO PT PRIMARY RN FOR TODAYS SHIFT AND SHE SHOOK HER HEAD THAT SHE UNDERSTOOD. WILL REVIEW CHART/LAB AND ORDERS AND BEGIN PLAN OF CARE.
--- NOTE | 2020-04-13 10:38 | NUR ---
PT NOW AWAKE BUT CALM AND COOPERATIVE. CONTINUING TO WEAN SEDATION FOR RT FOR BIPAP. REPOSITIONED PT UP ON HER L.SIDE FOR COMFORT. NO CURRENT NEEDS WILL CTM.
--- NOTE | 2020-04-13 11:24 | NUR ---
PT TRIALING CPAP AND AWAKE AND COOPERATIVE. PRN APRESOLINE GIVEN FOR BP 186/93. SEDATION HAS BEEN WEANED WILL CTM THIS.
--- NOTE | 2020-04-13 11:30 | NUR ---
FSBS 315. PROVIDED PT WITH 8 UNITS OF INSULIN PER SS.
--- NOTE | 2020-04-13 12:00 | NUR ---
PARTIAL LINEN CHANGE COMPLETED. PT TOLERATED WELL. REPOSITIONED PT UP IN BED AND ON HER BACK. ANAL LEAKAGE CONTINUES FROM INCISION SITE. CONSTANT LEAK OF BLOODY DRAINAGE, NO ODOR NOTED. STITCHES INTACT. MODERATE PRESSURE ULCER NOTED TO BUTTOCKS DARK PURPLE IN COLOR SKIN REMAINS INTACT, WILL CONTINUE WITH TURNING AND TRYING TO KEEP PRESSURE OFF OF IT. HARD TO KEEP DRY WITH CONSTANT ANAL LEAKAGE BUT WILL CONTINUE TO TRY AND PREVENT ANY BREAKDOWN. BP RESPONDED TO PRN APRESOLINE. PT IS NOW NOT FEBRILE TEMP OF 98.0. PT FOLLOWING COMMANDS AND SHAKING HEAD TO RESPOND TO ME. NO IMMEDIATE NEEDS NOTED AT THIS TIME. WILL CTM.
--- NOTE | 2020-04-13 13:00 | NUR ---
ALL SEDATION OFF PLANS TO EXTUBATE PT SHORTLY. PT AWAKE WITH EYES OPEN AND SHOOK HER HEAD THAT SHE UNDERSTANDS. WILL CTM.
--- NOTE | 2020-04-13 13:23 | NUR ---
PT WAS EXTUBATED AND UPON THE PROCESS SHE STARTED VOMITING GREEN EMESIS. NGT STILL IN PLACE AND ABOUT 200CC OF GREEN LIQUID WAS SUCTIONED. PRN ZOFRAN GIVEN AND PT NOW RESTING AND NOT VOMITING. PT ON NONREBREATHER FOR A MIN UNTIL WE BIPAP HOWEVER WE DONT WANT HER TO ASPIRATE IF SHE VOMITS. DISCUSSED WITH RT AND WILL CTM. PULSE OX 97% VSS. WILL CTM.
--- NOTE | 2020-04-13 15:00 | NUR ---
PT ON BIPAP AND TOLERATING WELL. PT TRYING TO TALK BUT UNABLE TO REALLY UNDERSTAND HER. UPDATED FAMILY. VSS. NO IMMEDIATE NEEDS NOTED AT THIS TIME. CL IN REACH, BED IN LOWEST, SIDE RAILS X2. WILL CTM.
--- NOTE | 2020-04-13 17:18 | NUR ---
AT BEDSIDE ROUNDING. PT AWAKE ON BIPAP. VSS. ALL LINES SECURED. REPOSITIONED PT IN BED OFF HER BACK ONTO HER R.SIDE. CHANGED OUT LINENS FROM ANAL LEAKAGE. NO IMMEDIATE NEEDS NOTED AT THIS TIME. WILL CTM.
--- NOTE | 2020-04-13 18:32 | NUR ---
FSBS 317 PROVIDED PT WITH 8UNITS PER SS. PT REMAINS ON HER BIPAP MOANING AND TRYING TO TALK BUT I STILL CANT UNDERSTAND HER AND THEN SHE GET FRUSTRATED AND CLOSES HER EYES AND TURNS HER HEAD. TRYING TO REASON WITH HER BUT SHE SEEMS A LITTLE DOWN. WILL CONTINUE TO TRY AND ENCOURAGE HER AND KEEP HER INVOLVED WITH HER PLAN OF CARE. CL IN REACH, SIDE RAILS X2, BED IN LOWEST, BUILT IN BED ALARM ON. NO CURRENT NEEDS AT THIS TIME.
[2020-04-14] VITALS (23 sets, daily range): BP systolic 122–199; BP diastolic 57–120
[2020-04-14 04:50] LABS: MAGNESIUM - SERUM 2.2 mg/dL (1.8-2.4)
--- NOTE | 2020-04-14 07:00 | NUR ---
RECIEVED BEDSIDE REPORT. ASSESSMENT COMPLETED. PT OPENS EYES AND WITHDRALS FROM PAIN- SLEEPY. NIGHT NURSE STATED PT WAS UP MOST OF THE NIGHT. BIPAP AT 50% NOTED. DIMINISHED BREATH SOUNDS. GENERALIZED NON PITTING EDEMA PRESENT. REPOSITIONED.
[2020-04-14 08:00] LABS: BASOPHILS 0.2 % (0-2); EOSINOPHILS 1.6 % (0-7); HEMATOCRIT 32.1 % (36.0-48.0); HEMOGLOBIN 10.2 g/dL (12-16); IMMATURE GRANULOCYTES 0.8 % (0-5); MCH 29.8 pg (26.0-34.0); MCHC 31.8 g/dL (31.0-37.0); MCV 93.9 fL (80.0-100.0); MEAN PLATELET VOLUME 10.2 fL (7.4-10.4); MONOCYTES 10.8 % (2-11); NEUTROPHILS 83.6 % (40-80); PLATELET COUNT 552 10x3/uL (130-400); RBC 3.42 10x6/uL (4.00-5.40); RDW 14.4 % (11.5-14.5); WBC 16.5 10x3/uL (4.8-10.8)
--- NOTE | 2020-04-14 08:00 | NUR ---
PT AWAKE CRYING. REORIENTED. REMOVED BIPAP AND APPLIED NC. 02 82 %, APPLIED NRB. O2 SAT 85-87%. REAPPLIED BIPAP AT 50%. IT TOOK 10 MINUTES FOR PT TO RECOVER. WILL CONTINUE TO MONITOR.
[2020-04-14 08:05] LABS: ALBUMIN 2.8 g/dL (3.4-5.0); ALKALINE PHOSPHATASE 76 U/L (30-120); ALT (SGPT) 40 U/L (10-68); BILIRUBIN - TOTAL 1.42 mg/dL (0.2-1.3); CALCIUM 9.4 mg/dL (8.5-10.1); CHLORIDE - SERUM 104 mmol/L (98-107); CREATININE - SERUM 0.8 mg/dL (0.6-1.3); PROTEIN - SERUM 6.2 g/dL (6.4-8.2); SODIUM 139 mmol/L (136-145); UREA NITROGEN 31 mg/dL (7-18); eGFR NON AFRICAN AMERICAN 75 mL/min (90-120)
[2020-04-14 08:08] LABS: CALC OSMOLALITY 293 mosm/kg (275-300); GLUCOSE 268 mg/dL (74-106)
--- NOTE | 2020-04-14 09:00 | NUR ---
REPOSITIONED FOR COMFORT. SD AWAKE THRASHING LEGS AND LEFT ARM WHILE SCREAMING. CALLED DR DOW TO UPDATE CONDITON. ORDERS RECIEVED TO ASK THE PRIMARY TO OBSERVE AND TREAT. DR LOERA IN ICU. UPDATED CONDITION. ORDERS RECIEVED FOR AIVAN 0.5 MG Q 6 HOURS.
--- NOTE | 2020-04-14 09:58 | NUR ---
Nutrition follow-up: Pt extubated 04/13; on BIPAP at this time TPN now @ 25 ml/hr per Dr. Sawant NPO Labs reviewed RDN following.
--- NOTE | 2020-04-14 11:00 | NUR ---
REASSESSMENT COMPLETED. PT RELAXED RESTING. NO S/S OF DISTRESS AT THIS TIME.
--- NOTE | 2020-04-14 11:30 | NUR ---
BLOOD CULTURES HAS GRAM POSIIVE IN CLUSTERS. DR LOERA AT BEDSIDE. ORDERS RECIEVED TO ADMINISTER ZOZYN
--- NOTE | 2020-04-14 13:00 | NUR ---
REPOSITTIONED. NO S/S OF DISTRESS [facility]
--- NOTE | 2020-04-14 15:00 | NUR ---
REASSESSMENT COMPLETED. NO CHANGES NOTED
--- NOTE | 2020-04-14 17:30 | NUR ---
PT RESTING WITH EYES CLOSED. NEDIES ANY NEEDS AT THIS TIME.
[2020-04-15] VITALS (24 sets, daily range): BP systolic 97–187; BP diastolic 59–91
[2020-04-15 06:43] LABS: PHOSPHOROUS 3.3 mg/dL (2.5-4.9)
--- NOTE | 2020-04-15 07:20 | NUR ---
REPORT RECEIVED. ASSESSMENT COMPLETE PER FLOW SHEET. VSS. PT RESTING COMFORTABLY WILL CONTINUE TO MONITOR
[2020-04-15 09:04] LABS: HEMATOCRIT 31.7 % (36.0-48.0); HEMOGLOBIN 9.9 g/dL (12-16); MCH 29.6 pg (26.0-34.0); MCHC 31.2 g/dL (31.0-37.0); MCV 94.6 fL (80.0-100.0); PLATELET COUNT 626 10x3/uL (130-400); RBC 3.35 10x6/uL (4.00-5.40); RDW 14.5 % (11.5-14.5); WBC 15.2 10x3/uL (4.8-10.8)
--- NOTE | 2020-04-15 09:43 | NUR ---
Nutrition follow-up: Pt extubated on BIPAP Remains NPO TPN off at this time per Dr. Sawant RDN following.
[2020-04-15 12:18] LABS: EOSINOPHILS 6 % (0-7); LYMPHOCYTES 6 % (15-50); MONOCYTES 19 % (2-11); NEUTROPHILS 64 % (40-80); PLATELET ESTIMATE INCREASED
[2020-04-16] VITALS (24 sets, daily range): BP systolic 99–173; BP diastolic 50–94
[2020-04-16 05:25] LABS: BASOPHILS 0.5 % (0-2); EOSINOPHILS 3.1 % (0-7); HEMATOCRIT 28.5 % (36.0-48.0); IMMATURE GRANULOCYTES 0.4 % (0-5); LYMPHOCYTES 6.9 % (15-50); MCH 29.4 pg (26.0-34.0); MCHC 31.6 g/dL (31.0-37.0); MCV 93.1 fL (80.0-100.0); MEAN PLATELET VOLUME 9.6 fL (7.4-10.4); NEUTROPHILS 81.1 % (40-80); PLATELET COUNT 566 10x3/uL (130-400); RBC 3.06 10x6/uL (4.00-5.40); RDW 14.4 % (11.5-14.5); WBC 12.4 10x3/uL (4.8-10.8)
[2020-04-16 05:39] LABS: ALBUMIN 2.7 g/dL (3.4-5.0); ANION GAP 10.7 mmol/L (8-16); BILIRUBIN - TOTAL 1.77 mg/dL (0.2-1.3); CARBON DIOXIDE 31.3 mmol/L (21.0-32.0); CREATININE - SERUM 0.9 mg/dL (0.6-1.3); MAGNESIUM - SERUM 1.6 mg/dL (1.8-2.4); PHOSPHOROUS 3.3 mg/dL (2.5-4.9); PROTEIN - SERUM 6.1 g/dL (6.4-8.2)
--- NOTE | 2020-04-16 16:15 | NUR ---
0700 REPORT RECIEVED AND CARE ASSUMED OF PATIENT.. SEE FLOW SHEET FOR SHIFT ASSESMENT FIDNINGS.. BIPAP O22 ON AT 100% 0930 DR ROJAS IN TO SEE PATIENT.. UPDATE IS GIVEN.. 0940 PCXR DONE, UPDATE TOOL FAMILY 1000DR BOB CALLED AND US CHEST ORDERED 1030 US CHEST COMPLETE AT BEDSIDE 1330 US RESULTS CALLED TO DR ROJAS .. KEEP PT ON BIPAP O2 FOR NOW.. 1500 I AND O DONE
[2020-04-17] VITALS (20 sets, daily range): BP systolic 93–183; BP diastolic 45–76
[2020-04-17 07:47] LABS: BASOPHILS 0.4 % (0-2); EOSINOPHILS 2.7 % (0-7); HEMATOCRIT 30.5 % (36.0-48.0); HEMOGLOBIN 9.6 g/dL (12-16); IMMATURE GRANULOCYTES 0.5 % (0-5); LYMPHOCYTES 11.3 % (15-50); MCH 29.4 pg (26.0-34.0); MCHC 31.5 g/dL (31.0-37.0); MCV 93.6 fL (80.0-100.0); MEAN PLATELET VOLUME 9.6 fL (7.4-10.4); MONOCYTES 7.1 % (2-11); PLATELET COUNT 531 10x3/uL (130-400); RBC 3.26 10x6/uL (4.00-5.40); RDW 14.4 % (11.5-14.5); WBC 12.7 10x3/uL (4.8-10.8)
[2020-04-17 08:04] LABS: ALBUMIN 2.8 g/dL (3.4-5.0); ANION GAP 11.1 mmol/L (8-16); BILIRUBIN - TOTAL 1.61 mg/dL (0.2-1.3); CARBON DIOXIDE 31.5 mmol/L (21.0-32.0); CREATININE - SERUM 0.9 mg/dL (0.6-1.3); MAGNESIUM - SERUM 1.5 mg/dL (1.8-2.4); PHOSPHOROUS 3.6 mg/dL (2.5-4.9); POTASSIUM - SERUM 3.6 mmol/L (3.5-5.1); PROTEIN - SERUM 6.4 g/dL (6.4-8.2)
--- NOTE | 2020-04-17 09:53 | NUR ---
0700 REPORT RECIEVED AND CARE ASSUMED OF PATIENT.. SEE FLOW SHEET FOR ASSESMENT FINDINGS 0800 TEMP 101.8 BLOOD CULTURES AND TYLENOL IV ORDERED 0930 DR ROJAS IN TO SEE PATIENT.. UPDATE IS GIVEN.. LASIX ORDERD AND GIVEN ABG DRAWN.. BIPAP CHANGES MADE BY RT
--- NOTE | 2020-04-17 10:00 | NUR ---
1000 FAMILY CALLED AND GIVEN UPDATE
[2020-04-18] VITALS (23 sets, daily range): BP systolic 93–144; BP diastolic 44–60
[2020-04-18 06:42] LABS: BASOPHILS 0.3 % (0-2); EOSINOPHILS 4.2 % (0-7); HEMATOCRIT 25.9 % (36.0-48.0); IMMATURE GRANULOCYTES 0.4 % (0-5); LYMPHOCYTES 6.2 % (15-50); MCHC 30.9 g/dL (31.0-37.0); MCV 93.8 fL (80.0-100.0); MEAN PLATELET VOLUME 9.6 fL (7.4-10.4); MONOCYTES 5.3 % (2-11); NEUTROPHILS 83.6 % (40-80); PLATELET COUNT 470 10x3/uL (130-400); RBC 2.76 10x6/uL (4.00-5.40); RDW 14.6 % (11.5-14.5); WBC 12.7 10x3/uL (4.8-10.8)
[2020-04-18 06:46] LABS: ALBUMIN 2.7 g/dL (3.4-5.0); BILIRUBIN - TOTAL 1.48 mg/dL (0.2-1.3); CALCIUM 8.5 mg/dL (8.5-10.1); CARBON DIOXIDE 32.3 mmol/L (21.0-32.0); CREATININE - SERUM 1.1 mg/dL (0.6-1.3); POTASSIUM - SERUM 3.3 mmol/L (3.5-5.1)
--- NOTE | 2020-04-18 07:20 | NUR ---
REPORT RECEIVED. ASSESSMENT COMPLETE PER FLOW SHEET. VSS. PT RESTING COMFORTABLY WILL CONTINUE TO MONITOR
--- NOTE | 2020-04-18 11:13 | NUR ---
Nutrition follow-up: Pt reintubated NPO; TPN was discontinued 04/15/[address] Sawant. Labs reviewed WT: 325# Pt with possible surgery soon Needs nutrition support started RDN following
[2020-04-18 13:34] LABS: MAGNESIUM - SERUM 1.8 mg/dL (1.8-2.4); PHOSPHOROUS 4.1 mg/dL (2.5-4.9)
[2020-04-19] VITALS (24 sets, daily range): BP systolic 97–163; BP diastolic 51–86
[2020-04-19 04:35] LABS: BASOPHILS 0.3 % (0-2); EOSINOPHILS 4.9 % (0-7); HEMATOCRIT 30.6 % (36.0-48.0); HEMOGLOBIN 9.8 g/dL (12-16); IMMATURE GRANULOCYTES 0.5 % (0-5); LYMPHOCYTES 5.5 % (15-50); MCH 29.7 pg (26.0-34.0); MCV 92.7 fL (80.0-100.0); MEAN PLATELET VOLUME 9.8 fL (7.4-10.4); MONOCYTES 5.6 % (2-11); NEUTROPHILS 83.2 % (40-80); PLATELET COUNT 414 10x3/uL (130-400); WBC 11.5 10x3/uL (4.8-10.8)
[2020-04-19 05:14] LABS: ALBUMIN 2.9 g/dL (3.4-5.0); ANION GAP 6.9 mmol/L (8-16); BILIRUBIN - TOTAL 1.53 mg/dL (0.2-1.3); CALCIUM 8.9 mg/dL (8.5-10.1); CARBON DIOXIDE 32.4 mmol/L (21.0-32.0); CREATININE - SERUM 0.9 mg/dL (0.6-1.3); POTASSIUM - SERUM 3.3 mmol/L (3.5-5.1); PROTEIN - SERUM 6.4 g/dL (6.4-8.2)
[2020-04-19 09:10] LABS: MAGNESIUM - SERUM 1.8 mg/dL (1.8-2.4)
[2020-04-19 09:11] LABS: PHOSPHOROUS 2.8 mg/dL (2.5-4.9)
--- NOTE | 2020-04-19 10:26 | NUR ---
Nutrition follow-up: Intubated, sedated Colonoscopy planned for today Dicussed pt with Dr. Cabezas; TPN restarted @ 60 ml/hr Labs reviewed Will continue current TPN regimen RDN following.
[2020-04-19 16:09] LABS: ACID FAST SMEAR Negative (()); AFB SPECIMEN PROCESSING Concentration (())
[2020-04-20] VITALS (24 sets, daily range): BP systolic 112–180; BP diastolic 58–85
[2020-04-20 04:39] LABS: BASOPHILS 0.2 % (0-2); EOSINOPHILS 2.9 % (0-7); HEMOGLOBIN 9.7 g/dL (12-16); IMMATURE GRANULOCYTES 0.5 % (0-5); MCH 29.2 pg (26.0-34.0); MCHC 31.3 g/dL (31.0-37.0); MCV 93.4 fL (80.0-100.0); MEAN PLATELET VOLUME 9.8 fL (7.4-10.4); MONOCYTES 5.2 % (2-11); NEUTROPHILS 86.2 % (40-80); PLATELET COUNT 376 10x3/uL (130-400); RBC 3.32 10x6/uL (4.00-5.40); RDW 14.8 % (11.5-14.5); WBC 12.1 10x3/uL (4.8-10.8)
[2020-04-20 05:00] LABS: ANION GAP 10.5 mmol/L (8-16); BILIRUBIN - TOTAL 1.28 mg/dL (0.2-1.3); CALCIUM 8.7 mg/dL (8.5-10.1); CARBON DIOXIDE 30.8 mmol/L (21.0-32.0); CREATININE - SERUM 0.9 mg/dL (0.6-1.3); MAGNESIUM - SERUM 1.9 mg/dL (1.8-2.4); PHOSPHOROUS 2.3 mg/dL (2.5-4.9); POTASSIUM - SERUM 3.3 mmol/L (3.5-5.1); PROTEIN - SERUM 6.7 g/dL (6.4-8.2)
--- NOTE | 2020-04-20 07:28 | NUR ---
Nutrition follow-up: Pt intubated, sedated Colonoscopy 04/19 Labs reviewed TPN formula adjusted; insulin added 2/2 elevated glucose RDN following.
[2020-04-20 10:12] LABS: FUNGUS STAIN Final report (())
[2020-04-21] VITALS (21 sets, daily range): BP systolic 114–156; BP diastolic 53–86
[2020-04-21 04:22] LABS: HEMATOCRIT 28.1 % (36.0-48.0); HEMOGLOBIN 8.9 g/dL (12-16); LYMPHOCYTES 5.7 % (15-50); MCHC 31.7 g/dL (31.0-37.0); MCV 94.6 fL (80.0-100.0); MEAN PLATELET VOLUME 9.8 fL (7.4-10.4); NEUTROPHILS 84.3 % (40-80); PLATELET COUNT 321 10x3/uL (130-400); RBC 2.97 10x6/uL (4.00-5.40); RDW 14.3 % (11.5-14.5); WBC 10.6 10x3/uL (4.8-10.8)
[2020-04-21 04:47] LABS: CALC OSMOLALITY 284 mosm/kg (275-300); CALCIUM 8.5 mg/dL (8.5-10.1); CHLORIDE - SERUM 104 mmol/L (98-107); CREATININE - SERUM 0.8 mg/dL (0.6-1.3); GLUCOSE 188 mg/dL (74-106); MAGNESIUM - SERUM 2.1 mg/dL (1.8-2.4); POTASSIUM - SERUM 3.7 mmol/L (3.5-5.1); SODIUM 139 mmol/L (136-145); UREA NITROGEN 19 mg/dL (7-18); eGFR NON AFRICAN AMERICAN 75 mL/min (90-120)
[2020-04-21 04:58] LABS: PHOSPHOROUS 3.1 mg/dL (2.5-4.9)
--- NOTE | 2020-04-21 07:10 | NUR ---
REPORT RECEIVED FROM OFF GOING NURSE AND PATIENT CARE ASSUMED. PT LAYING IN BED ON BACK WITH HOB ELEVATED 30 DEGREES ON VENT AC R14 FIO2 65 PEEP 12. BP 138/60 HR83 O2SAT 97% RR 14. GLOVER CATHETER INTACT DRAINING CONC GOLD URINE. BRIDGET SOFT WRIST RESTRAINTS IN PLACE. CVL TO LSC AND ART LINE TO ELFT RADIAL. WILL CONTINUE WITH PLAN OF CARE. SR UP X 2 BED IN LOW POSITION AND CALL LIGHT IN REACH.
--- NOTE | 2020-04-21 07:23 | NUR ---
Nutrition follow-up: Chart reviewed Labs reviewed Pt continues to be intubated, sedated with propofol Wt: 325# TPN continues @ 60 ml/hr Will continue current TPN regimen RDN following.
[2020-04-22] VITALS (24 sets, daily range): BP systolic 118–172; BP diastolic 52–78
[2020-04-22 06:09] LABS: BASOPHILS 0.4 % (0-2); EOSINOPHILS 5.7 % (0-7); HEMATOCRIT 31.7 % (36.0-48.0); HEMOGLOBIN 9.8 g/dL (12-16); IMMATURE GRANULOCYTES 0.7 % (0-5); LYMPHOCYTES 8.5 % (15-50); MCH 29.3 pg (26.0-34.0); MCHC 30.9 g/dL (31.0-37.0); MCV 94.6 fL (80.0-100.0); MEAN PLATELET VOLUME 10.1 fL (7.4-10.4); MONOCYTES 7.7 % (2-11); PLATELET COUNT 361 10x3/uL (130-400); RBC 3.35 10x6/uL (4.00-5.40); RDW 14.8 % (11.5-14.5); WBC 11.3 10x3/uL (4.8-10.8)
[2020-04-22 06:19] LABS: ALBUMIN 3.2 g/dL (3.4-5.0); ALKALINE PHOSPHATASE 217 U/L (30-120); ALT (SGPT) 16 U/L (10-68); BILIRUBIN - TOTAL 0.92 mg/dL (0.2-1.3); CALC OSMOLALITY 283 mosm/kg (275-300); CALCIUM 8.9 mg/dL (8.5-10.1); CARBON DIOXIDE 27.1 mmol/L (21.0-32.0); CHLORIDE - SERUM 104 mmol/L (98-107); CREATININE - SERUM 0.6 mg/dL (0.6-1.3); GLUCOSE 187 mg/dL (74-106); MAGNESIUM - SERUM 2.2 mg/dL (1.8-2.4); PHOSPHOROUS 3.3 mg/dL (2.5-4.9); POTASSIUM - SERUM 4.1 mmol/L (3.5-5.1); PROTEIN - SERUM 7.1 g/dL (6.4-8.2); SODIUM 138 mmol/L (136-145); UREA NITROGEN 20 mg/dL (7-18); eGFR NON AFRICAN AMERICAN > 90 mL/min (90-120)
--- NOTE | 2020-04-22 07:39 | NUR ---
Nutrition follow-up: Pt remains intubated, sedated with propofol @ 17.2 ml/hr TPN at 60 ml/hr Labs reviewed Will continue current TPN regimen RDN following.
--- NOTE | 2020-04-22 11:43 | OP ---
PATIENT NAME: TRISTA NEAL MEDICAL RECORD: [id number] :48 LOCATION:[facility] D.2309 ADMISSION DATE:03/30/20 SURGEON: SHARON DOW MD DATE OF OPERATION: 03/30/2020 PREOPERATIVE DIAGNOSIS: Low rectal cancer. POSTOPERATIVE DIAGNOSES: Low rectal cancer with inability to perform a coloanal anastomosis due to the positive distal margin. PROCEDURES: 1. Abdominoperineal resection. 2. Incidental appendectomy. SURGEON: Sharon Dow MD CATALOGUE ILLUSTRATOR: None. BLOOD LOSS: Please see the anesthesia sheet. COMPLICATIONS: None. The risks, possible complications and alternatives to the procedure were explained to the patient. She elects to proceed. The discussion specifically included, but was not limited to, bleeding requiring emergency reoperation, infection, intestinal injury. The indication for the incidental appendectomy is to avoid diagnostic confusion in the future should the patient have a recurrence or persistence of abdominal pain. The procedure was made much more difficult due to the patient's body habitus at a height of 5 feet 2 inches and weight of 268 pounds. OPERATIVE COURSE: The patient was conveyed to the operating room electively on 03/30/2020. General anesthesia was induced by the anesthesia staff. A lower transverse incision was accomplished. Sharp dissection was carried down through skin and subcutaneous tissues as well as Aisha fascia. The anterior fascia was incised transversely. The rectus muscles were spread laterally. The peritoneal cavity was entered sharply. An Rayray retractor was placed. I then went down below after elevating the adjustable stirrups. I placed a Antoine retractor. I was able to feel the plaque-like adenocarcinoma. I took some biopsies at the top of the internal hemorrhoids. These were done with endoscopic biopsy forceps. These biopsies came back positive for adenocarcinoma. Therefore, the patient was not a candidate for a sphincter sparing procedure such as a coloanal anastomosis. The patient had undergone chemotherapy, but no radiation due to the history of endometrial cancer. The patient had had all of the radiation that she could stand during the radiation therapy for the endometrial cancer. I began to excise the anus. A circular incision was accomplished. It went from the coccyx around to the vagina. Care was paid during the entire operation not to injure the vagina and indeed the vagina was undamaged during this operation. OPERATIVE REPORT [id number] TRISTA NEAL I then began to dissect up into the rectum. I took down the rectal stalks bilaterally. I continued my blunt dissection anteriorly and posteriorly. I identified no evidence of a ureteral or bladder injury. I then regowned and redraped. I went up above, incised the peritoneal reflection on either side of the rectum. I identified both ureters, which were retracted for protection. I then transected the mid sigmoid colon with a MARY KAY-75 stapler. I then took down the rest of the sigmoid colon as well as the mesorectum with the Super Jaw EnSeal device. The anus and rectal specimens were then sent as a single unit to the pathologist. I irrigated and aspirated in the cavity where the rectum had been. I tried to mobilize some omentum to fill up the space in the pelvis, but this was not going to be fruitful. A circular incision was accomplished in the left lower quadrant. I brought out the colostomy through this defect. The defect was created by excising some subcutaneous fat underneath the circular defect. The fascia was unidentified and a cruciate incision was accomplished involving the fascia and the muscle of the abdominal wall in the left lower quadrant. I examined the colon coming out through the colostomy defect. There was Doppler signal within the colon specimen. I ensured that the small bowel was not twisted on its mesentery. I identified the appendix. The appendix was mobilized. A window was created in the mesoappendix. I then took down the mesoappendix with the Super Jaw EnSeal device. I stapled across the appendiceal opening with a MARY KAY-75 stapler. Within the transverse incision, I reperitonealized with a running #1 Vicryl. The rectus muscles were brought together in the midline with multiple interrupted horizontal mattress #1 Vicryls. The anterior fascia was approximated with looped #1 PDS from the right side and the left side. Aisha fascia was approximated with interrupted 3-0 Vicryls. The subdermis was approximated with interrupted 3-0 Vicryls. While covering up this incision carefully, I went about making the stoma. I incised the staple line. I tried to create an everting type of colostomy utilizing a Vicryl suture at 4 quadrants around the colostomy. I excised the staple line. The everting type of colostomy was constructed by utilizing 3-0 Vicryl sutures incorporating a portion of the colon with the margin of the colotomy and in the subcutaneous skin. Unfortunately, the colon was under good bit of tension and did not willie well. Anyhow, I completed the colostomy formation with interrupted 3-0 Vicryls between the full thickness cut portion of the colon and the surrounding subcutaneous tissues. With regard to the lower transverse incision, the subdermis was approximated with interrupted 3-0 Vicryls. The skin was approximated with a running intracuticular 4-0 Vicryl. Benzoin and Steri-Strips were applied. The patient was then extubated and conveyed to the post-anesthesia care unit. TRANSINT:[id number] Voice Confirmation ID: [id number] DOCUMENT ID: [id number] OPERATIVE REPORT [id number] TRISTA NEAL ROBERT MD at 1143 CC: [id number] DICTATION DATE: 04/18/20 1237 GRANT WRITER: 04/18/20 1750 ADM IN [place] [id number] [place] [address]
--- NOTE | 2020-04-22 11:44 | OP ---
PATIENT NAME: TRISTA NEAL MEDICAL RECORD: [id number] :48 [place] [place] D.2309 ADMISSION DATE:03/30/20 SURGEON: MICHEL DOW MD DATE OF OPERATION: 04/19/2020 PREOPERATIVE DIAGNOSIS: Necrotic colostomy stoma. POSTOPERATIVE DIAGNOSES: Necrotic colostomy stoma with the area of necrosis isolated to the very superficial most portion of the colostomy. PROCEDURE: Limited colonoscopy. SURGEON: Michel Dow MD [employer] TECHNICIAN: None. BLOOD LOSS: Minimal. ANESTHESIA: IV paralytic as well as IV sedation. The patient is already sedated on the ventilator. The patient has undergone 2 laparotomies. After the second laparotomy, the stoma looked pretty good. It then became dusky and the superficial most portion of the colostomy became necrotic. I need to know how far the necrosis travels down the colon. The procedure was performed at the bedside. OPERATIVE COURSE: The patient was seen in her ICU bed. She was positioned prone. The colostomy wafer was removed. Utilizing a colonoscope, I intubated the stoma. I then advanced the colonoscope. I advanced it about a foot. The only area of necrosis was the very superficial most portion of the colon at the colostomy. I noted no other areas of necrosis. No other areas of exudate or apparent ischemia. I then withdrew the colonoscope. The procedure was then terminated. TRANSINT:[id number] Voice Confirmation ID: [id number] DOCUMENT ID: [id number] MICHEL DOW MD at 1144 CC: [id number] DICTATION DATE: 04/21/20 1039 LOAN ASSOCIATE: 04/21/20 1238 ADM IN [facility] [address] [id number]
--- NOTE | 2020-04-22 12:10 | NUR ---
BRONCHOSCOPY DONE BY DR MARCOS AND RT. ETT REPOSITIONED AND IS 22 AT LIP LINE.
--- NOTE | 2020-04-22 12:42 | NUR ---
ETT @ 22CM @LIP
[2020-04-23] VITALS (25 sets, daily range): BP systolic 101–173; BP diastolic 42–88
[2020-04-23 05:50] LABS: BASOPHILS 0.3 % (0-2); HEMATOCRIT 29.7 % (36.0-48.0); HEMOGLOBIN 9.3 g/dL (12-16); IMMATURE GRANULOCYTES 0.5 % (0-5); LYMPHOCYTES 6.2 % (15-50); MCH 29.2 pg (26.0-34.0); MCHC 31.3 g/dL (31.0-37.0); MCV 93.4 fL (80.0-100.0); MONOCYTES 6.2 % (2-11); NEUTROPHILS 83.8 % (40-80); PLATELET COUNT 367 10x3/uL (130-400); RBC 3.18 10x6/uL (4.00-5.40); RDW 14.4 % (11.5-14.5); WBC 11.2 10x3/uL (4.8-10.8)
[2020-04-23 06:28] LABS: ALBUMIN 2.9 g/dL (3.4-5.0); ALKALINE PHOSPHATASE 171 U/L (30-120); ALT (SGPT) 14 U/L (10-68); BILIRUBIN - TOTAL 0.95 mg/dL (0.2-1.3); CALC OSMOLALITY 287 mosm/kg (275-300); CARBON DIOXIDE 26.4 mmol/L (21.0-32.0); CHLORIDE - SERUM 104 mmol/L (98-107); CREATININE - SERUM 0.7 mg/dL (0.6-1.3); GLUCOSE 219 mg/dL (74-106); PHOSPHOROUS 3.4 mg/dL (2.5-4.9); POTASSIUM - SERUM 4.5 mmol/L (3.5-5.1); PROTEIN - SERUM 6.6 g/dL (6.4-8.2); SODIUM 139 mmol/L (136-145); UREA NITROGEN 20 mg/dL (7-18); eGFR NON AFRICAN AMERICAN 88 mL/min (90-120)
--- NOTE | 2020-04-23 08:45 | NUR ---
Nutrition Follow-up: Pt remains intubated/sedated. TPN @ 60 mL/hr Labs reviewed TPN adjusted; spoke with pharmacy. RD following.
[2020-04-23 19:08] LABS: ACID FAST SMEAR Negative (()); AFB SPECIMEN PROCESSING Concentration (())
[2020-04-24] VITALS (24 sets, daily range): BP systolic 95–165; BP diastolic 44–86
[2020-04-24 05:05] LABS: BASOPHILS 0.3 % (0-2); EOSINOPHILS 4.6 % (0-7); HEMATOCRIT 29.2 % (36.0-48.0); HEMOGLOBIN 9.1 g/dL (12-16); IMMATURE GRANULOCYTES 0.7 % (0-5); LYMPHOCYTES 7.2 % (15-50); MCH 29.3 pg (26.0-34.0); MCHC 31.2 g/dL (31.0-37.0); MCV 93.9 fL (80.0-100.0); MONOCYTES 6.3 % (2-11); NEUTROPHILS 80.9 % (40-80); PLATELET COUNT 397 10x3/uL (130-400); RBC 3.11 10x6/uL (4.00-5.40); RDW 14.6 % (11.5-14.5); WBC 13.2 10x3/uL (4.8-10.8)
[2020-04-24 05:25] LABS: CALC OSMOLALITY 278 mosm/kg (275-300); CALCIUM 9.3 mg/dL (8.5-10.1); CARBON DIOXIDE 24.6 mmol/L (21.0-32.0); CHLORIDE - SERUM 102 mmol/L (98-107); CREATININE - SERUM 0.7 mg/dL (0.6-1.3); GLUCOSE 189 mg/dL (74-106); MAGNESIUM - SERUM 2.1 mg/dL (1.8-2.4); PHOSPHOROUS 3.6 mg/dL (2.5-4.9); POTASSIUM - SERUM 4.5 mmol/L (3.5-5.1); SODIUM 136 mmol/L (136-145); UREA NITROGEN 18 mg/dL (7-18); eGFR NON AFRICAN AMERICAN 88 mL/min (90-120)
--- NOTE | 2020-04-24 10:47 | NUR ---
Nutrition follow-up: Chart reviewed Labs reviewed Will continue current TPN regimen RDN following.
[2020-04-25] VITALS (24 sets, daily range): BP systolic 121–178; BP diastolic 49–69
[2020-04-25 05:26] LABS: CALC OSMOLALITY 274 mosm/kg (275-300); CALCIUM 9.2 mg/dL (8.5-10.1); CARBON DIOXIDE 24.2 mmol/L (21.0-32.0); CHLORIDE - SERUM 100 mmol/L (98-107); CREATININE - SERUM 0.7 mg/dL (0.6-1.3); GLUCOSE 186 mg/dL (74-106); SODIUM 134 mmol/L (136-145); UREA NITROGEN 17 mg/dL (7-18); eGFR NON AFRICAN AMERICAN 88 mL/min (90-120)
--- NOTE | 2020-04-25 06:28 | NUR ---
VANC HELD WITH TROUGH OF 23.9
[2020-04-25 06:40] LABS: BASOPHILS 0.4 % (0-2); EOSINOPHILS 5.3 % (0-7); HEMATOCRIT 27.8 % (36.0-48.0); HEMOGLOBIN 8.7 g/dL (12-16); LYMPHOCYTES 6.1 % (15-50); MCH 29.2 pg (26.0-34.0); MCHC 31.3 g/dL (31.0-37.0); MCV 93.3 fL (80.0-100.0); MEAN PLATELET VOLUME 10.3 fL (7.4-10.4); MONOCYTES 6.9 % (2-11); NEUTROPHILS 80.3 % (40-80); PLATELET COUNT 414 10x3/uL (130-400); RBC 2.98 10x6/uL (4.00-5.40); RDW 14.8 % (11.5-14.5); WBC 13.4 10x3/uL (4.8-10.8)
--- NOTE | 2020-04-25 07:00 | NUR ---
REC'D REPORT AND RESUMED CARE, ETT TO VENT AND SECURED, VSS, NGT TO LEFT NARE WITH DARK SECRETIONS TO CANISTER, RIGHT IJ WITH IVF PER IV FLOWSHEET, MID LINE ABDOMIAL INCISION TO WOUND VAC, ABD LLQ WITH ILEOSTOMY, EDEMA NOTED THROUGHOUT, FOEY TO GRAVITY WITH DON DRAINAGE TO BAG, SCD/S B/L, NO RESTRAINTS IN USE, ASSESSMENT COMPLETED PER FLOWSHEET, WILL CONTINUE WITH POC
[2020-04-25 07:42] LABS: PHOSPHOROUS 3.8 mg/dL (2.5-4.9)
--- NOTE | 2020-04-25 08:34 | NUR ---
Nutrition follow-up: Pt intubated, sedated with propofol @ 30.5 ml. Labs reviewed; Na a little low Wt: 340# TPN @ 60 ml/hr Will continue current TPN formula. RDN following.
--- NOTE | 2020-04-25 09:00 | NUR ---
MORNING MEDS GIVEN PER OCT FLOWSHEET
[2020-04-25 12:08] LABS: FUNGUS STAIN Final report (())
--- NOTE | 2020-04-25 13:15 | NUR ---
CHG BATH GIVEN PER Oct
--- NOTE | 2020-04-25 15:28 | NUR ---
TYLENOL 650 SUPP GIVEN VIA NGT FOR FEVER 101.9,
--- NOTE | 2020-04-25 17:30 | NUR ---
CONTINUES ON VENT WITH ETT SECURED, PROPOFAL IN USE, CALM AND SEDATED, NO ACUTE CHANGE FROM PREVIOUS
[2020-04-26] VITALS (54 sets, daily range): BP systolic 77–156; BP diastolic 39–70
--- NOTE | 2020-04-26 01:00 | NUR ---
B/P STARTED DECREASING WITH MAP IN 50'S. [address] MOBLEY / NEW ORDERS RECEIVED. LEVOPHED GTT STARTED AT 5MCG/MIN 0200 B/P 105/45 WITH MAP OF 50. 0215 INCREASED LEVOPHEN GTT TO 6 MCG/MIN
--- NOTE | 2020-04-26 01:33 | NUR ---
PAGED AND SPOKE WITH DR MOBLEY ABOUT PT BP, ORDERS FOR LEVOPHED RECIEVED.
--- NOTE | 2020-04-26 02:00 | NUR ---
INCREASED LEVOPHED TO 6 MCG/MIN.
--- NOTE | 2020-04-26 05:50 | NUR ---
DECREASED LEVOPHED TO 4MCG/MIN
--- NOTE | 2020-04-26 07:00 | NUR ---
REC'D REPORT AND RESUMED CARE, ASSESSMENT COMPLETED PER FLOWSHEET, NO ACUTE CHANGE FROM PREVIOUS ASSESSMENT, VSS, LEVOPHED TITRATED TO 2 MCG, [id number]
--- NOTE | 2020-04-26 09:24 | NUR ---
Nutrition follow-up: Chart reviewed K, Mg, Ca now low Recommend riders or redraw lab Will continue current TPN and make changes tomorrow if labs still low RDN following.
--- NOTE | 2020-04-26 11:00 | NUR ---
LEVAPHED TITRATED TO TO 2 MCG, SBP 120, WILL CONTINUE TO MONITOR
[2020-04-26 12:31] LABS: CALC OSMOLALITY 276 mosm/kg (275-300); CALCIUM 9.2 mg/dL (8.5-10.1); CARBON DIOXIDE 24.3 mmol/L (21.0-32.0); CHLORIDE - SERUM 101 mmol/L (98-107); CREATININE - SERUM 0.7 mg/dL (0.6-1.3); GLUCOSE 201 mg/dL (74-106); POTASSIUM - SERUM 3.7 mmol/L (3.5-5.1); SODIUM 134 mmol/L (136-145); UREA NITROGEN 21 mg/dL (7-18); eGFR NON AFRICAN AMERICAN 88 mL/min (90-120)
[2020-04-26 12:32] LABS: CREATININE - SERUM 0.7 mg/dL (0.6-1.3); MAGNESIUM - SERUM 2.2 mg/dL (1.8-2.4); VANCOMYCIN - RANDOM 22.4 ug/mL (10.0-20.0)
[2020-04-26 12:33] LABS: HEMATOCRIT 26.6 % (36.0-48.0); HEMOGLOBIN 8.5 g/dL (12-16); MCH 29.4 pg (26.0-34.0); RBC 2.89 10x6/uL (4.00-5.40); WBC 20.7 10x3/uL (4.8-10.8)
[2020-04-26 12:34] LABS: MEAN PLATELET VOLUME 10 fL (7.4-10.4); PLATELET COUNT 443 10x3/uL (130-400); RDW 14.6 % (11.5-14.5)
[2020-04-26 13:09] LABS: EOSINOPHILS 2 % (0-7); LYMPHOCYTES 12 % (15-50); MONOCYTES 12 % (2-11); NEUTROPHILS 73 % (40-80)
[2020-04-26 13:10] LABS: ANISOCYTOSIS OCC; PLATELET ESTIMATE INCREASED
--- NOTE | 2020-04-26 15:00 | NUR ---
LEVAPHED TITRATED OFF, SBP 115, WILL CONTINUE TO MONITOR
--- NOTE | 2020-04-26 16:00 | NUR ---
I URBAN Roque'S COMPLETED
--- NOTE | 2020-04-26 22:31 | NUR ---
DR DOW PAGED AND NOTIFIED OF POSITIVE BLOOD CULTURE (YEAST) ORDERS TO CALL AND CONSULT WITH DR ROJAS FOR ANTIBIOTIC ORDERS. DR ROJAS PAGED.
--- NOTE | 2020-04-26 22:34 | NUR ---
PER DR ROJAS, HOLD TPN NOW, 100 MG IV DAILY OF MICOFUNGIN.
[2020-04-27] VITALS (24 sets, daily range): BP systolic 86–175; BP diastolic 43–126
[2020-04-27 04:59] LABS: BASOPHILS 0.8 % (0-2); EOSINOPHILS 4.5 % (0-7); HEMATOCRIT 25.1 % (36.0-48.0); LYMPHOCYTES 5.3 % (15-50); MCH 29.2 pg (26.0-34.0); MCHC 31.9 g/dL (31.0-37.0); MCV 91.6 fL (80.0-100.0); MEAN PLATELET VOLUME 9.8 fL (7.4-10.4); MONOCYTES 6.3 % (2-11); NEUTROPHILS 78.1 % (40-80); PLATELET COUNT 385 10x3/uL (130-400); RBC 2.74 10x6/uL (4.00-5.40); RDW 14.7 % (11.5-14.5)
[2020-04-27 05:22] LABS: ANION GAP 13.9 mmol/L (8-16); CALCIUM 8.9 mg/dL (8.5-10.1); CARBON DIOXIDE 22.7 mmol/L (21.0-32.0); MAGNESIUM - SERUM 1.9 mg/dL (1.8-2.4); PHOSPHOROUS 2.9 mg/dL (2.5-4.9); POTASSIUM - SERUM 3.6 mmol/L (3.5-5.1); VANCOMYCIN - TROUGH 13.6 ug/mL (10.0-20.0)
[2020-04-27 05:31] LABS: CREATININE - SERUM 0.9 mg/dL (0.6-1.3)
--- NOTE | 2020-04-27 07:15 | NUR ---
BEDSIDE SHIFT REPORTING REC'D. INTRODUCED MYSELF TO PT PRIMARY RN FOR TODAYS SHIFT. PT IS ON THE VENT AND VERY SEDATED. PT IS NOT RESPONSIVE TO VERBAL OR TACTILE STIMULI, WILL WEAN SEDATION PER ORDERS TO ACHIEVE WANTED SAS SCORE. PT HAS A NGT TO HER L.NARE WITH LIS AND DARK BROWN/GREEN DRAINAGE. S1S2 HEART SOUNDS NOTED AND PT IS RUNNING SINUS IN THE 70S AT THIS TIME. LUNGS ARE VERY CONGESTED WITH INSPIRATORY WHEEZING IN BILAT UPPER LOBES, CRACKLES IN RML AND BILAT LOWER LOBES DIMINISHED. PT HAS A MIDLINE ABDOMINAL WOUND VAC IN PLACE AND NO LEAK DETECTED, NO DRAINAGE NOTED IN WOUND CANISTER. PT HAS A ILEOSTOMY TO HER L.LOWER ABDOMEN WITH LOOSE SOFT BROWNISH GREEN STOOL. STOMA NOTED AND SOME PINK SEEN BUT HARD TO SEE WITH THE STOOL COVERING IT. NO REDNESS OR S/S OF INFECTION NOTED AROUND THE COLLECTION BAG AND STOMA SITE. ABDOMEN DISTENDED BUT PT IS OBESE ITS SOFT AND DOESNT APPEAR TO BE TENDER SHE DOESNT GRIMANCE WHEN ASSESSED. PT HAS A GLOVER DRAINING TO GRAVITY OFF R.SIDE OF BED WITH STAT LOCK SECURED TO HER R.INNER THIGH. BS ACTIVE IN ALL QUADRANTS EXCEPT LEFT LOWER QUADRANT. PTS BILAT FEET HAVE +2 PITTING EDEMA, ELEVATED BILAT FEET ON PILLOWS TO HELP REDUCE SWELLING. PTS L.HEEL IS VERY BOGGY AND DEEPENED RED/PURPLE IN COLOR, BRIDGED ANKLES. NO IMMEDIATE NEEDS NOTED AT THIS TIME. WILL TURN PT IN 2HRS AND ASSESS HER BACK SIDE. BED IN LOWEST, SIDE RAILS X2 AND BUILT IN BED ALARM ON. WILL REVIEW CHART AND ORDERS AND BEGIN PLAN OF CARE.
--- NOTE | 2020-04-27 08:37 | NUR ---
SPOKE WITH ABOUT PTS CONDITION AND FEVER OF 103.1 OVERNIGHT. NEW ORDERS OBTAINED. WOULD LIKE TO HAVE LINES REPLACED PT DID HAVE YEAST IN HER BLOOD CULTURE. CONSULTED VASCULAR ACCESS FOR PICC LINE AND THEN WE CAN D/C CVL. D/C PTS L.RADIAL ART LINE, REMOVED 1 STITCH. HELD PRESSURE AND NO BLEEDING NOTED. GUAZE AND INSERTION SITE COVERED. EMPTIED 400CC OF SOFT LOOSE GREENISH BROWN STOOL FROM L.SIDE ILEOSTOMY. NO IMMEDIATE NEEDS AT THIS TIME. WILL CTM.
--- NOTE | 2020-04-27 09:34 | NUR ---
Nutrition follow-up; Pt remains intubated, sedated with propofol @ 52.2 ml/hr TPN discontinued 2/2 yeast in blood Labs reviewed Wt: 352# Pt with fever Labs reviewed RDN following.
--- NOTE | 2020-04-27 09:56 | NUR ---
OBTAINED CONSENT FOR PICC LINE PLACEMENT PER TELEPHONE SATISH. PTS TEMP DOWN TO 98.7F AFTER TYELENOL TREATMENT.
--- NOTE | 2020-04-27 11:50 | NUR ---
D/C PTS R.IJ CVL LINE WITH CATHETER TIP FULLY. REMOVED 3 SUTURES FROM SITE. CLEANED AREA APPLIED PRESSURE PER POLICY. NO BLEEDING NOTED. APPLIED GUAZE AND SECURED WITH TAPE. NOW PROPOFOL DRIP AND FLUIDS INFUSING NEW R.UPPER ARM PICC LINE. REPOSITIONED PT IN BED TO RELIEVE PRESSURE. L.RADIAL SITE HAS NO S/S OF BLEEDING OR HEMATOMA FROM ART LINE REMOVAL. FSBS 140 NO ACTION REQUIRED PER SS. NO IMMEDIATE NEEDS NOTED AT THIS TIME. WILL CPOC.
--- NOTE | 2020-04-27 14:00 | NUR ---
REPOSITIONED PT IN BED TO RELIEVE PRESSURE. VSS AND BEING MONITERED. NO NEEDS IDENTIFIED AT THIS TIME. WILL CPOC.
--- NOTE | 2020-04-27 15:31 | NUR ---
CHG COMPLETE BED BATH GIVEN ALONG WITH FULL LINEN CHANGE. PTS BOTTOM IS VERY EXCORIATED WITH AN UNSTAGEABLE PRESSURE ULCER MORE TO THE RIGHT BUTTOCK COMPARED TO THE LEFT. ANAL SUTURES STILL NOTED AND ANUS HAS SEROSANGIOUS DRAINAGE. WILL PASS ON IN REPORT TO MAKE SURE WE ARE KEEPING HER CLEAN AND DRY POSSIBLE AND TURNING AT LEAST Q2HRS TO PREVENT ANY FURTHER BREAKDOWN. STAT LOCK SATURATED. D/C AND APPLIED NEW ONE TO HER R.INNER THIGH. GLOVER DRAINING TO GRAVITY DON COLORED URINE WITH ONLY ABOUT 450CC OUT THIS SHIFT. EMPTIED ANOTHER 350CC OF FECES FROM L.SIDE ILEOSTOMY BAG. L.RADIAL SITE REMAINS FREE OF BLEEDING OR HEMATOMA. R.IJ OLD CVL SITE REMAINS FREE OF BLEEDING AND NO S/S OF HEMATOMA NOTED. NEW ELECTRODES PLACED FOR TELEMETRY PT RUNNING SR IN THE 70S. PTS R.ARM HAS WEEPING EDEMA, ELEVATED BILAT ARMS ON PILLOWS AND PLACED A PILLOW BETWEEN PTS LEGS TO PREVENT ANY RUBBING ON BONY PROMINENCES. PT IS STILL SLIGHTLY FEBRILE @100.1F. PT IS STILL RECIEVING IV TYELENOL. NO IMMEDIATE NEEDS AT THIS TIME. WILL CTM.
--- NOTE | 2020-04-27 15:49 | MORECARE ---
CASE MANAGEMENT DISCHARGE SUMMARY PATIENT: TRISTA NEAL UNIT: [id number] ADM DATE: 03/30/20 AGE: 69 : 49 SEX: F ROOM/BED: D.2302 AUTHOR: EDILBERTO HDEZ PHYSICIAN: REFERRING PHYSICIAN: SHARON DOW MD DATE OF SERVICE: 04/27/20 Discharge Plan Patient Name: TRISTA NEAL Facility: [facility]:[place] : 1950 Planned Disposition: Home or Self Care Anticipated Discharge Date: Discharge Date: Expected LOS: Initial Reviewer: [email or web address] Initial Review Date: 04/04/2020 Generated: 04/27/20 4:48 pm DCP- Discharge Planning Updated by [email or web address]: Taar Ruiz on 04/04/20 2:[address] Patient Name: TRISTA NAEL Admission Status: Elective Accout number: [id number] Admission Date: 03-30-2020 : 1950 Admission Diagnosis:MALIGNANT NEOPLASM OF RECTUM Attending: SHARON DOW Current LOS: 5 Anticipated DC Date: Planned Disposition: Home or Self Care Primary Insurance: MEDICARE A & B Discharge Planning Comments: CM met with patient AND DAUGHTER DONTE at bedside after explaining CM role and obtaining verbal consent. CM discussed availability / needs of home health, REHAB and medical equipment. PATIENT WITH NG TUBE AT THIS TIME. STATES PLAN TO DC TO HOME WHEN BETTER. REASSES FOR POSSIBLE NEED FOR HH OR REHAB. [place]man: Tara Ruiz DCPIA - Discharge Planning Initial Assessment Updated by [email or web address]: Tara Ruiz on 04/04/20 2:59 pm * Is the patient Alert and Oriented? Yes * PCP [facility] * [facility] * Preadmission Environment Home with Family * ADLs Independent * Other Equipment NEBULIZER * Can the patient safely return to the preadmission environment? Yes * Has this patient been hospitalized within the prior 30 days at any hospital? No Last DP export: 04/04/20 2:05 p Patient Name: TRISTA NEAL Page [id number] at 1549 All edits/amendments must be made on the electronic document DICTATION DATE: 04/27/20 1548 PEOPLESOFT CONSULTANT: JENIFFER 04/27/20 1548 RPT#: [id number] DC DATE: STATUS: ADM IN [facility] [address] [place] [address] END OF REPORT
--- NOTE | 2020-04-27 17:39 | NUR ---
CALLED PTS SATISH AND DISCUSSED PTS POOR CONDITION IN DETAIL. FAMILY VERBALIZED UNDERSTANDING AND ARE THINKING ABOUT PALLITIVE CARE. FAMILY WILL DISCUSS AND COME SEE PT AND THEN MAKE THEIR DECISION. WILL PASS ON IN SHIFT REPORT AND IS AWARE.
--- NOTE | 2020-04-27 19:19 | MORECARE ---
CASE MANAGEMENT DISCHARGE SUMMARY PATIENT: TRISTA NEAL UNIT: [id number] ADM DATE: 03/30/20 AGE: 69 : 49 SEX: F ROOM/BED: D.2302 AUTHOR: KETTY,DOC PHYSICIAN: REFERRING PHYSICIAN: SHARON DOW MD DATE OF SERVICE: 04/27/20 Discharge Plan Patient Name: TRISTA NEAL Facility: [facility]:[place] : 1950 Planned Disposition: Home or Self Care Anticipated Discharge Date: Discharge Date: Expected LOS: Initial Reviewer: [email or web address] Initial Review Date: 04/04/2020 Generated: 04/27/20 8:19 pm Comments DCP- Discharge Planning Updated by [email or web address]: Didi Reyes on 04/27/20 6:[address] Dow is suppose to speak with family this evening regarding comfort care. CM will continue to follow and assist as needed with discharge planning / needs. DCP- Discharge Planning Updated by [email or web address]: Tara Ruiz on 04/04/20 2:[address] Patient Name: TRISTA NEAL Admission Status: Elective Accout number: [id number] Admission Date: 03-30-2020 : 1950 Admission Diagnosis:MALIGNANT NEOPLASM OF RECTUM Attending: SHARON DOW Current LOS: 5 Anticipated DC Date: Planned Disposition: Home or Self Care Primary Insurance: MEDICARE A & B Discharge Planning Comments: CM met with patient AND DAUGHTER DONTE at bedside after explaining CM role and obtaining verbal consent. CM discussed availability / needs of home health, REHAB and medical equipment. PATIENT WITH NG TUBE AT THIS TIME. STATES PLAN TO DC TO HOME WHEN BETTER. REASSES FOR POSSIBLE NEED FOR HH OR REHAB. Packing Tractor Machine Operator: Tara Ruiz DCPIA - Discharge Planning Initial Assessment Updated by [email or web address]: Tara Ruiz on 04/04/20 2:59 pm * Is the patient Alert and Oriented? Yes * PCP [facility] * [facility] * Preadmission Environment Home with Family * ADLs Independent * Other Equipment NEBULIZER * Can the patient safely return to the preadmission environment? Yes * Has this patient been hospitalized within the prior 30 days at any hospital? No Last DP export: 04/27/20 2:49 pm Patient Name: TRISTA NEAL Page [id number] at 1918 All edits/amendments must be made on the electronic document DICTATION DATE: 04/27/201918 [employer] DIRECTOR: JENIFFER 04/27/201918 RPT#: [id number] DC DATE: STATUS: ADM IN [facility] [address] [place] [address] END OF REPORT
--- NOTE | 2020-04-27 20:07 | NUR ---
PT FAMILY AT BEDSIDE. DENIES QUESTIONS AT THIS TIME. PT STATES THAT THE PATIENT HAS BEEN COMPLETELY NONRESPONSIVE DESPITE THE SEDATION HOLIDAY. HE STATES THAT HE WILL SPEAK WITH THE MD TOMORROW ABOUT THE DECISION OF THE FAMILY FOR THE PATIENT PLAN OF CARE. WILL CONTINUE TO MONITOR
[2020-04-28] VITALS (24 sets, daily range): BP systolic 112–142; BP diastolic 54–73
[2020-04-28 05:12] LABS: ANION GAP 13.2 mmol/L (8-16); CARBON DIOXIDE 22.5 mmol/L (21.0-32.0); CREATININE - SERUM 1.1 mg/dL (0.6-1.3); PHOSPHOROUS 3.6 mg/dL (2.5-4.9); POTASSIUM - SERUM 3.7 mmol/L (3.5-5.1)
[2020-04-28 05:15] LABS: BASOPHILS 1.8 % (0-2); EOSINOPHILS 1.4 % (0-7); HEMATOCRIT 26.2 % (36.0-48.0); HEMOGLOBIN 8.5 g/dL (12-16); IMMATURE GRANULOCYTES 8.1 % (0-5); LYMPHOCYTES 3.1 % (15-50); MCH 29.5 pg (26.0-34.0); MCHC 32.4 g/dL (31.0-37.0); MEAN PLATELET VOLUME 9.8 fL (7.4-10.4); MONOCYTES 9.4 % (2-11); NEUTROPHILS 76.2 % (40-80); PLATELET COUNT 347 10x3/uL (130-400); RBC 2.88 10x6/uL (4.00-5.40); RDW 14.8 % (11.5-14.5); WBC 11.8 10x3/uL (4.8-10.8)
[2020-04-29] VITALS (24 sets, daily range): BP systolic 116–157; BP diastolic 26–80
[2020-04-29 05:09] LABS: HEMATOCRIT 26.2 % (36.0-48.0); HEMOGLOBIN 8.9 g/dL (12-16); MCH 30.6 pg (26.0-34.0); MEAN PLATELET VOLUME 10.2 fL (7.4-10.4); PLATELET COUNT 321 10x3/uL (130-400); RBC 2.91 10x6/uL (4.00-5.40); RDW 14.9 % (11.5-14.5)
[2020-04-29 05:11] LABS: WBC 19.5 10x3/uL (4.8-10.8)
[2020-04-29 05:17] LABS: ANION GAP 14.6 mmol/L (8-16); CARBON DIOXIDE 21.8 mmol/L (21.0-32.0); CREATININE - SERUM 1.1 mg/dL (0.6-1.3); PHOSPHOROUS 3.6 mg/dL (2.5-4.9); POTASSIUM - SERUM 3.4 mmol/L (3.5-5.1)
[2020-04-29 05:36] LABS: EOSINOPHILS 6 % (0-7); LYMPHOCYTES 11 % (15-50); MONOCYTES 4 % (2-11); NEUTROPHILS 64 % (40-80); PLATELET ESTIMATE NORMAL; SMUDGE CELLS 1+
--- NOTE | 2020-04-29 07:00 | NUR ---
REPORT RECEIVED. ASSESSMENT COMPLETE PER FLOW SHEET. VSS. PT RESTING COMFORTABLY WILL CONTINUE TO MONITOR
--- NOTE | 2020-04-29 09:04 | NUR ---
DR DOW CALLED GIVEN UDPATE NEW ORDERS RECEIVED FOR DOBHOFF PLACEMENT AND KUB TO VERIFY WILL ADM.
--- NOTE | 2020-04-29 09:44 | NUR ---
Nutrition follow-up: Pt intubated, sedated; propofol @ 30 ml/hr NPO Labs reviewed Wt: 346# Noted order for Dobhoff tube placed today Recommend starting Osmolite 1.0 hakeem @ 25 ml/hr with gradual increase to goal rate of 75 ml/hr with 25 ml H2O flush q hour RDN following.
--- NOTE | 2020-04-29 09:44 | NUR ---
FAILED PS TRIAL
[2020-04-29 16:09] LABS: FUNGUS CULTURE RESULT 1 Candida parapsilosis (())
--- NOTE | 2020-04-29 19:34 | MORECARE ---
CASE MANAGEMENT DISCHARGE SUMMARY PATIENT: TRISTA NEAL UNIT: [id number] ADM DATE: 03/30/20 AGE: 69 : 49 SEX: F ROOM/BED: D.2302 AUTHOR: EDILBERTO HDEZ PHYSICIAN: REFERRING PHYSICIAN: SHARON DOW MD DATE OF SERVICE: 04/29/20 Discharge Plan Patient Name: TRISTA NEAL Facility: [facility]:[place] : 1950 Planned Disposition: Home or Self Care Anticipated Discharge Date: Discharge Date: Expected LOS: Initial Reviewer: [email or web address] Initial Review Date: 04/04/2020 Generated: 04/29/20 8:34 pm Comments DCP- Discharge Planning Updated by [id number]: Didi Reyes on 04/29/20 6:[address] per nursing family at this time wanting to continue current plan of care will revisit possibility of comfort care on Saturday depending on how patient progresses over weekend. CM will continue to follow and assist as needed with discharge planning / needs. DCP- Discharge Planning Updated by [email or web address]: Didi Reyes on 04/27/20 6:[address] Dow is suppose to speak with family this evening regarding comfort care. CM will continue to follow and assist as needed with discharge planning / needs. DCP- Discharge Planning Updated by [email or web address]: Tara Ruiz on 04/04/20 2:[address] Patient Name: TRISTA NEAL Admission Status: Elective Accout number: [id number] Admission Date: 03-30-2020 : 1950 Admission Diagnosis:MALIGNANT NEOPLASM OF RECTUM Attending: SHARON DOW Current LOS: 5 Anticipated DC Date: Planned Disposition: Home or Self Care Primary Insurance: MEDICARE A & B Discharge Planning Comments: CM met with patient AND DAUGHTER DONTE at bedside after explaining CM role and obtaining verbal consent. CM discussed availability / needs of home health, REHAB and medical equipment. PATIENT WITH NG TUBE AT THIS TIME. STATES PLAN TO DC TO HOME WHEN BETTER. REASSES FOR POSSIBLE NEED FOR HH OR REHAB. Clinical Outcomes Manager: Tara Ruiz DCPIA - Discharge Planning Initial Assessment Updated by [id number]: Tara Ruiz on 04/04/20 2:59 pm * Is the patient Alert and Oriented? Yes * PCP [facility] * [facility] * Preadmission Environment Home with Family * ADLs Independent * Other Equipment NEBULIZER * Can the patient safely return to the preadmission environment? Yes * Has this patient been hospitalized within the prior 30 days at any hospital? No Last DP export: 04/27/20 6:19 pm Patient Name: TRISTA NEAL Page 57637 at 1934 All edits/amendments must be made on the electronic document DICTATION DATE: 04/29/201933 GLASS SCIENCE ENGINEER: JENIFFER 04/29/201933 RPT#: [id number] DC DATE: STATUS: ADM IN [facility] [address] [place] [address] END OF REPORT
[2020-04-30] VITALS (18 sets, daily range): BP systolic 118–149; BP diastolic 49–71
[2020-04-30 05:17] LABS: HEMATOCRIT 25.5 % (36.0-48.0); HEMOGLOBIN 8.5 g/dL (12-16); MCHC 33.3 g/dL (31.0-37.0); MCV 90.1 fL (80.0-100.0); PLATELET COUNT 283 10x3/uL (130-400); RBC 2.83 10x6/uL (4.00-5.40); RDW 14.9 % (11.5-14.5); WBC 28.4 10x3/uL (4.8-10.8)
[2020-04-30 05:31] LABS: ANION GAP 16.1 mmol/L (8-16); CALCIUM 8.9 mg/dL (8.5-10.1); CARBON DIOXIDE 21.2 mmol/L (21.0-32.0); MAGNESIUM - SERUM 1.9 mg/dL (1.8-2.4); POTASSIUM - SERUM 3.3 mmol/L (3.5-5.1)
[2020-04-30 05:36] LABS: EOSINOPHILS 7 % (0-7); LYMPHOCYTES 8 % (15-50); MONOCYTES 4 % (2-11); NEUTROPHILS 58 % (40-80); PLATELET ESTIMATE NORMAL; SMUDGE CELLS 1+
--- NOTE | 2020-04-30 09:00 | NUR ---
COMPLETE HIBCLENS BATH GIVEN. WEEPING FROM ARMS NOTED. MULITIPLE BLISTERS NOTED ON ARMS. WOUND VAC ON ABD INCISION COMPRESSED WITHOUT DRAINAGE IN CONTAINER OR TUBING. ILESTOMY BAG REPLACE. DARK GREEN SEMI LIQUID STOOL NOTED IN BAG. RIGHT BUTTOCK WITH HARD ESCHAR BLACK AREA NOTED. MEDIPLEX APPLIED. NO REDNESS NOTED ON HEELS OR COCCYX. HEEL PROTECTORS ON HEELS. RIGHT UPPER ARM PICC DRESSING HALF OFF, REPLACED IN PROGRAM OR PROJECT ADMINISTRATOR
--- NOTE | 2020-04-30 10:00 | NUR ---
50 ML OF DARK GREEN DRAINAGE FROM DOBBHOFF RETURNED WHEN CONNECTED TO SUCTION. MEDS GIVEN DOBBHOFF CLAMPED
--- NOTE | 2020-04-30 12:20 | NUR ---
NO TUBE FEEDING BAG AVAILABLE FOR PUMPS, 20 ML OF OSMOLITE 1.0 GIVEN PER DOBBHOFF. FLUSH WITH 30 ML OF WATER
--- NOTE | 2020-04-30 15:53 | NUR ---
SUCTION SMALLER AMOUNTS FROM ETT AND ORALLY. STILL FROTHY SPUTUM, NOT PINK. OPENS EYES TO STIMULATION. HANDS ELEVATED ON PILLOWS. HEEL PROTECTORS IN PLACE. HEAD OF BED ELEVATED 30 DEGREES.
[2020-05-01] VITALS (24 sets, daily range): BP systolic 106–161; BP diastolic 46–81
[2020-05-01 05:08] LABS: HEMATOCRIT 25.2 % (36.0-48.0); MCH 29.1 pg (26.0-34.0); MCHC 31.7 g/dL (31.0-37.0); MCV 91.6 fL (80.0-100.0); MEAN PLATELET VOLUME 9.7 fL (7.4-10.4); PLATELET COUNT 251 10x3/uL (130-400); RBC 2.75 10x6/uL (4.00-5.40); RDW 15.4 % (11.5-14.5); WBC 36.7 10x3/uL (4.8-10.8)
[2020-05-01 05:11] LABS: EOSINOPHILS 3 % (0-7); LYMPHOCYTES 7 % (15-50); MONOCYTES 3 % (2-11); NEUTROPHILS 64 % (40-80); PLATELET ESTIMATE NORMAL
[2020-05-01 05:12] LABS: ANION GAP 14.7 mmol/L (8-16); CALCIUM 9.3 mg/dL (8.5-10.1); CARBON DIOXIDE 21.9 mmol/L (21.0-32.0); CREATININE - SERUM 1.3 mg/dL (0.6-1.3); PHOSPHOROUS 2.9 mg/dL (2.5-4.9); POTASSIUM - SERUM 3.6 mmol/L (3.5-5.1)
--- NOTE | 2020-05-01 10:00 | NUR ---
TALKED TO DAUGHTER AND ON PHONE. CONSENT FOR BRONCHSCOPY RECEIVED FROM , SATISH.
--- NOTE | 2020-05-01 13:54 | NUR ---
HIBCLENS BATH GIVEN. LESS WEEPING RIGHT ARM. MEDIPLEX CHANGE BROWN JAY DRAINAGE NOTED ON DRESSING SMALL AMOUNT. INCISION ON RECTUM INTACT. BLACK NECROTIC AREA UNCHANGED. ABD WOUND VAC COMPRESSED NO DRAINAGE IN TUBING OR CONTAINER. ILEOSTOMY DRAINAGE DARK BROWN. PICC LINE DRESSING DRY AND INTACT. BRONCHSCOPY COMPLETED, DR. ROJAS CALLED AFTER PROCEDURE. SCD ON LOWER LEGS. HEEL PROTECTORS IN PLACE. HEAD OF BED ELEVATED 30 DEGREES. DOBBHOFF TO LOW INTERMITTENT SUCTION DARK BROWN DRAINAGE NOTED IN CONTAINER.
[2020-05-01 16:04] LABS: MACROPHAGES BF 1 %; NEUT - BF 85 %
--- NOTE | 2020-05-01 18:40 | NUR ---
DR. DOW HERE UPDATE GIVEN.
[2020-05-02] VITALS (23 sets, daily range): BP systolic 94–152; BP diastolic 48–76
[2020-05-02 06:36] LABS: MAGNESIUM - SERUM 1.9 mg/dL (1.8-2.4); PHOSPHOROUS 3.2 mg/dL (2.5-4.9)
--- NOTE | 2020-05-02 07:00 | NUR ---
REPORT RECEIVED. ASSESSMENT COMPLETE PER FLOW SHEET. VSS. PT RESTING COMFORTABLY WILL CONTINUE TO OMNITOR
--- NOTE | 2020-05-02 10:42 | NUR ---
Nutrition follow-up: Pt remains intubated, sedated with propofol @ 30 ml/hr Dobhoff placed; however, pt was not tolerating Osmolite 1.0 hakeem @ 10 ml/hr Dobhoff -> LIWS with large amount of drainage Labs reviewed Wt: 332# 4+ weeping edema all extremeties TPN discontinued 2/2 yeast in blood RDN following.
--- NOTE | 2020-05-02 21:26 | NUR ---
7647 PT TERMINALLY EXTUBATED PER ORDERS AND FAMILY REQUEST. FAMILY NOW AT BEDSIDE.
--- NOTE | 2020-05-03 02:19 | NUR ---
0150 PATIENT NO LONGER BREATHING AND ASYSTOLE NOTED ON CM. DR SHEEHAN ON UNIT, AND PRONOUNCED PATIENT AT 0154. FAMILY AT BEDSIDE. RECIEVED INFORMATION ON FAMILIES WISHES FOR PATIENT HOME AND SIGNATURES OBTAINED INDICATING THERE WER NO PERSONAL BELONGINGS TO BE SENT HOME.
--- NOTE | 2020-05-03 02:35 | NUR ---
KARI CALLED AND NOTIFED OF , POTENTIAL DONOR AT THIS TIME, AWAITING CALL FROM COORDINATOR.
--- NOTE | 2020-05-03 02:46 | NUR ---
0243 KARI CALLED BACK, PATIENT IS NOT A CANDIDATE. HOME CALLED AT 0245 AND NOTIFIED.
--- NOTE | 2020-05-03 12:08 | MORECARE ---
CASE MANAGEMENT DISCHARGE SUMMARY PATIENT: TRISTA NEAL UNIT: [id number] ADM DATE: 03/30/20 AGE: 69 : 49 SEX: F ROOM/BED: D.2302 AUTHOR: KETTY,EDILBERTO PHYSICIAN: REFERRING PHYSICIAN: SHARON DOW MD DATE OF SERVICE: 05/03/20 Discharge Plan Patient Name: TRISTA NEAL Facility: [facility]:[place] : 1950 Planned Disposition: Home or Self Care Anticipated Discharge Date: Discharge Date: 05/03/2020 Expected LOS: Initial Reviewer: [email or web address] Initial Review Date: 04/04/2020 Generated: 05/03/20 1:08 pm Comments DCP- Discharge Planning Updated by [email or web address]: Didi Reyes on 04/29/20 6:[address] per nursing family at this time wanting to continue current plan of care will revisit possibility of comfort care on Saturday depending on how patient progresses over weekend. CM will continue to follow and assist as needed with discharge planning / needs. DCP- Discharge Planning Updated by [email or web address]: Didi Reyes on 04/27/20 6:[address] Dow is suppose to speak with family this evening regarding comfort care. CM will continue to follow and assist as needed with discharge planning / needs. DCP- Discharge Planning Updated by [email or web address]: Tara Ruiz on 04/04/20 2:[address] Patient Name: TRISTA NEAL Admission Status: Elective Accout number: [id number] Admission Date: 03-30-2020 : 1950 Admission Diagnosis:MALIGNANT NEOPLASM OF RECTUM Attending: SHARON DOW Current LOS: 5 Anticipated DC Date: Planned Disposition: Home or Self Care Primary Insurance: MEDICARE A & B Discharge Planning Comments: CM met with patient AND DAUGHTER DONTE at bedside after explaining CM role and obtaining verbal consent. CM discussed availability / needs of home health, REHAB and medical equipment. PATIENT WITH NG TUBE AT THIS TIME. STATES PLAN TO DC TO HOME WHEN BETTER. REASSES FOR POSSIBLE NEED FOR HH OR REHAB. Pneumatic Tube Operator: Tara Ruiz DCPIA - Discharge Planning Initial Assessment Updated by [email or web address]: Tara Ruiz on 04/04/20 2:59 pm * Is the patient Alert and Oriented? Yes * PCP [facility] * [facility]acy [facility] * Preadmission Environment Home with Family * ADLs Independent * Other Equipment NEBULIZER * Can the patient safely return to the preadmission environment? Yes * Has this patient been hospitalized within the prior 30 days at any hospital? No Last DP export: 04/29/20 6:34 p Patient Name: TRISTA NEAL Page 50761 at 1208 All edits/amendments must be made on the electronic document DICTATION DATE: 05/03/20 120 FIRE PREVENTION SPECIALIST: JENIFFER 05/03/20 1208 RPT#: [id number] DC DATE:05/03/20 STATUS: DIS IN [facility] [address] [place] [address] END OF REPORT
[2020-05-04 10:13] LABS: AMPHOTERICIN B MIC 0.5 ug/mL (())
[2020-05-04 15:13] LABS: FUNGUS STAIN Final report (())
[2020-05-06 12:12] LABS: FUNGUS MYCOLOGY CULTURE Final report (())
[2020-05-06 13:12] LABS: FUNGUS MYCOLOGY CULTURE Final report (())
== END 2020-05-03 03:52 | DRG 329 ==
LOC: D.SDCHOLD 08:00 → D.MS 03-30 08:24 → D.SDCHOLD 03-30 08:24 → D.ICU 03-30 08:24 → D.SDCHOLD 03-30 11:00 → D.ICU 03-30 21:50 → D.MS 04-01 11:26 → D.ICU 04-05 21:41
PROVIDERS: Anesthesiology; Emergency Medicine; Family Medicine; Internal Medicine Pulmonary Disease; ADMIT Surgery; ATTEND Surgery
PROC: 0DTP0ZZ Resection of Rectum, Open Approach (ICD-10-PCS; 2020-03-30)
PROC: 0DTQ0ZZ Resection of Anus, Open Approach (ICD-10-PCS; 2020-03-30)
PROC: 0DTN0ZZ Resection of Sigmoid Colon, Open Approach (ICD-10-PCS; 2020-03-30 11:00)
PROC: 0BH17EZ Insertion of Endotracheal Airway into Trachea, Via Natural or Artificial Opening (ICD-10-PCS; 2020-04-06)
PROC: 5A1955Z Respiratory Ventilation, Greater than 96 Consecutive Hours (ICD-10-PCS; principal; 2020-04-06 10:15)
PROC: 0B9B8ZZ Drainage of Left Lower Lobe Bronchus, Via Natural or Artificial Opening Endoscopic (ICD-10-PCS; 2020-04-07)
PROC: 5A1955Z Respiratory Ventilation, Greater than 96 Consecutive Hours (ICD-10-PCS; 2020-04-17)
PROC: 0BH17EZ Insertion of Endotracheal Airway into Trachea, Via Natural or Artificial Opening (ICD-10-PCS; 2020-04-17)
PROC: 0B9C8ZX Drainage of Right Upper Lung Lobe, Via Natural or Artificial Opening Endoscopic, Diagnostic (ICD-10-PCS; 2020-04-17)
PROC: 0DJD8ZZ Inspection of Lower Intestinal Tract, Via Natural or Artificial Opening Endoscopic (ICD-10-PCS; 2020-04-19)
PROC: 0B9J8ZZ Drainage of Left Lower Lung Lobe, Via Natural or Artificial Opening Endoscopic (ICD-10-PCS; 2020-04-22)
PROC: 0B9F8ZZ Drainage of Right Lower Lung Lobe, Via Natural or Artificial Opening Endoscopic (ICD-10-PCS; 2020-04-22)
PROC: 05HY33Z Insertion of Infusion Device into Upper Vein, Percutaneous Approach (ICD-10-PCS; 2020-04-27)
PROC: 0B9F8ZX Drainage of Right Lower Lung Lobe, Via Natural or Artificial Opening Endoscopic, Diagnostic (ICD-10-PCS; 2020-05-01)
DX: C20 Malignant neoplasm of rectum (principal); J96.01 Acute respiratory failure with hypoxia; J69.0 Pneumonitis due to inhalation of food and vomit; A41.9 Sepsis, unspecified organism; R65.21 Severe sepsis with septic shock; D62 Acute posthemorrhagic anemia; I95.9 Hypotension, unspecified; Z66 Do not resuscitate; I10 Essential (primary) hypertension; E11.9 Type 2 diabetes mellitus without complications; E78.5 Hyperlipidemia, unspecified; J45.909 Unspecified asthma, uncomplicated; E66.01 Morbid (severe) obesity due to excess calories; F32.9 Major depressive disorder, single episode, unspecified; C55 Malignant neoplasm of uterus, part unspecified; L30.9 Dermatitis, unspecified; E87.6 Hypokalemia; T17.990A Other foreign object in respiratory tract, part unspecified in causing asphyxiation, initial encounter